=== PATIENT | male | born 1985 | race Caucasian/White ===

== ENCOUNTER 2019-12-29 10:17 | Emergency (ER) | payer OTHER ==
[2019-12-29 10:51] VITALS: BP 126/70; PULSE 72; TEMP 98; BMI 26.6
[2019-12-29] MEDS ORDERED: ALBUTEROL SO4 8 GM HFA INHALER IH ONE (11:14)
--- NOTE | 2019-12-29 11:21 | PDOC ---
History of Present Illness - General Chief Complaint: Cold Symptoms Stated Complaint: FEVER/COUGH History Source: Patient Exam Limitations: No Limitations - History of Present Illness Initial Comments: 12/29/19 11:16 34 yo male h/o asthma here with cough congestion subjective fever and chills, nausea, x 4 days. no known sick contacts. did have one episoe of vomiting 4 days ago, none since. no recent travel. no known covid 19 exposures or close contacts. does use inhaler at home from time to time. no rash. no abd pain. no cp no other complaints. cough nonproductive. pt was seen in [facility] ed a few d ays ago and given benadryl. has been taking nyquil and dayquil since, mild improvement. did not take any medicine prior to coming. 12/29/19 11:28 Past History - Past Medical History Allergies/Adverse Reactions: Allergies Allergy/AdvReac Type Severity Reaction Status Date / Time No Known Allergies Allergy Verified 12/29/19 10:47 Home Medications: Ambulatory Orders NK [No Known Home Medication] 12/29/19 Asthma: Yes COPD: No - Psycho Social/Smoking Cessation Hx Smoking History: Current every day smoker Have you smoked in the past 12 months: Yes Number of Cigarettes Smoked Daily: 3 Information on smoking cessation initiated: No Hx Alcohol Use: No Drug/Substance Use Hx: No Review of Systems - Review of Systems Constitutional: No: Chills, Diaphoresis, Fever HEENTM: Yes: Other (nasal congestions) Respiratory: Yes: Cough, Shortness of Breath Cardiac (ROS): No: Chest Pain, Edema, Irregular Heart Rate : No: Burning, Dysuria Musculoskeletal: No: Back Pain Integumentary: No: Bruising Neurological: No: Headache, Numbness Psychiatric: No: Frequent Crying, Stressors All Other Systems: Reviewed and Negative *Physical Exam - Vital Signs Last Vital Signs Temp Pulse Resp BP Pulse Ox 98.0 F 72 20 126/70 100 12/29/19 10:48 12/29/19 10:48 12/29/19 10:48 12/29/19 10:48 12/29/19 10:48 - Physical Exam 12/29/19 11:19 awake alert lungs clear bilat heart rrr no mrg abd soft nt nd ext wwp no edema. no calf tenderness. skin warm and dry. ED Treatment Course - RADIOLOGY Radiology Studies Ordered: Category Date Time Status CHEST PA & LAT [RAD] Stat Radiology 12/29/19 11:11 Ordered Medical Decision Making - Medical Decision Making 12/29/19 11:20 34 yo h/o asthma here with viral uri sxs. no increased work of breathing normal lung exam. no known sick contacts. plan given mdi, and cxr. [facility] home. Discharge - Discharge Information Problems reviewed: Yes Clinical Impression/Diagnosis: Viral URI Condition: Improved Disposition: HOME - Admission No - Follow up/Referral Referrals: Kan Pedraza MD [Primary Care Provider] - - Patient Discharge Instructions Patient Printed Discharge Instructions: DI for Viral Upper Respiratory Infection -- Adult Additional Instructions: you should follow up with your regular doctor . use inhaler 2 puffs albuterol every 4 hour as needed for cough wheezing. take tylenol 500 mg every 6 hours as neeed for fever or headache. return for vomiting., shortness of breath or any concerns. - Post Discharge Activity
== END 2019-12-29 11:46 | disposition home or self-care (01) ==
LOC: JER 10:17
DX: J06.9 Acute upper respiratory infection, unspecified (principal); B97.89 Other viral agents as the cause of diseases classified elsewhere
CPT/HCPCS: 71046-TC-FY; 99283-25

== ENCOUNTER 2020-06-12 07:59 | Emergency (ER) | payer OTHER ==
[2020-06-12 08:10] VITALS: BP 140/79; PULSE 81; TEMP 98.4; BMI 38.4
[2020-06-12] MEDS ORDERED: FLUORESCEIN NA 1 EA STRIP OS ONE (08:13)
[2020-06-12] MEDS ORDERED: TETRACAINE 0.5% HCL 0.6ML DROPPER.BOTTLE OS ONE (08:13)
[2020-06-12] MEDS ORDERED: FLUORESCEIN NA 1 EA STRIP ONE (08:14)
[2020-06-12] MEDS ORDERED: TETRACAINE 0.5% OPHTH SOLN 2 ML BOTTLE ONE (08:15)
--- NOTE | 2020-06-12 08:29 | PDOC ---
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 Patient report going to urgent care after incident happened 3 days ago and was told by urgent care provider foreign body was seen but it seems like it could not be seen anymore. Patient reports still having irritation in the left eye with foreign body sensation. Denies blurry vision, change in vision, difficulty moving eye. Denies contact lens use. Denies any other symptoms Is this a multiple visit Asthma Patient?: No Timing/Duration: other (3 days) Past History - Medical History Allergies/Adverse Reactions: Allergies Allergy/AdvReac Type Severity Reaction Status Date / Time No Known Allergies Allergy Verified 06/12/20 08:07 Home Medications: Ambulatory Orders Ofloxacin 0.3% Ophth Soln [Ocuflox -] 2 drop OS Q6H 5 Days #1 bottle 06/12/20 Asthma: Yes Cardiac Disorders: Yes COPD: No - Immunization History Immunization Up to Date: Yes - Psycho-Social/Smoking History Smoking History: Current every day smoker Have you smoked in the past 12 months: Yes Number of Cigarettes Smoked Daily: 3 Information on smoking cessation initiated: No - Substance Abuse Hx (Audit-C & DAST Scrn) How often the patient has a drink containing alcohol: Monthly or less Number of drinks the patient has on a typical day: 1 or 2 How often the patient has six or more drinks on one occasion: Never Score: In Men: 4 or > Positive; In Women: 3 or > Positive: 1 Screen Result (Pos requires Nsg. Audit-10AR): Negative In the last yr the pt used illegal drug/Rx for NonMed reason: No Score: Yes response is considered Positive: 0 Screen Result (Positive result requires Nsg. DAST-10): Negative Review of Systems - Review of Systems Able to Perform ROS?: Yes Is the patient limited Finnish proficient: No Constitutional: No: Chills, Fever, Malaise HEENTM: Yes: Symptoms Reported, See HPI, Eye Pain (left eye). No: Blurred Vision, Tearing, Recent change in vision, Double Vision, Cataracts, Ear Pain, Ocular Prothesis, Ear Discharge, Nose Pain, Nose Congestion, Tinnitus, Nose Bleeding, Hearing Loss, Throat Pain, Throat Swelling, Mouth Pain, Dental Problems, Difficulty Swallowing, Mouth Swelling, Other Respiratory: No: Symptoms reported, See HPI, Cough, Orthopnea, Shortness of Breath, SOB with Exertion, SOB at Rest, Stridor, Wheezing, Productive cough, Hemoptysis, Other Cardiac (ROS): No: Symptoms Reported, See HPI, Chest Pain, Edema, Irregular Heart Rate, Lightheadedness, Palpitations, Syncope, Chest Tightness, Other ABD/GI: No: Symptoms Reported, Nausea, Vomiting All Other Systems: Reviewed and Negative *Physical Exam - Vital Signs Last Vital Signs Temp Pulse Resp BP Pulse Ox 98.4 F 81 20 140/79 100 06/12/20 08:07 06/12/20 08:07 06/12/20 08:07 06/12/20 08:07 06/12/20 08:07 - Physical Exam 06/12/20 08:34 GENERAL: Well developed, well nourished. Awake and alert. No acute distress. HEENT: Normocephalic, atraumatic. PERRLA, EOMI. No conjunctival pallor. Sclera are non-icteric. No foreign body visible on exam with fluorescein stain and Burkett lamp. 20/20 OU on visual acuity. Moist mucous membranes. Oropharynx is clear. NECK: Supple. Full ROM. PULMONARY: No evidence of respiratory distress. MUSCULOSKELETAL Normal range of motion at all joints. SKIN: Warm and dry. Normal capillary refill. No rashes. No jaundice. NEUROLOGICAL: Alert, awake, appropriate. Gait is normal without ataxia. PSYCHIATRIC: Cooperative. Good eye contact. Appropriate mood General Appearance: Yes: Nourished, Appropriately Dressed. No: Apparent Distress ED Treatment Course - Medications Given in the ED: ED Medications Discontinued Medications Generic Name Dose Route Start Last Admin Trade Name Freq PRN Reason Stop Dose Admin Fluorescein Sodium 1 ea 06/12/20 08:13 06/12/20 08:17 Fluorets - OS 06/12/20 08:14 1 ea ONCE ONE Administration Tetracaine HCl 1 drop 06/12/20 08:13 06/12/20 08:17 Tetravisc 0.5% Eye Drops - OS 06/12/20 08:14 1 drop ONCE ONE Administration Medical Decision Making - Medical Decision Making 06/12/20 08:32 Patient with no significant past medical history present for evaluation of left eye irritation status post piece of stone going in his left eye 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 Patient report going to urgent care after incident happened 3 days ago and was told by urgent care provider foreign body was seen but it seems like it could not be seen anymore. Patient reports still having irritation in the left eye with foreign body sensation. Denies blurry vision, change in vision, difficulty moving eye. Denies contact lens use. Denies any other symptoms No foreign body visible on exam with fluorescein stain and Burkett lamp. Extraocular muscle intact. Pupil equal reflective to light bilateral. Patient in no acute distress. Left eye irrigated at the eye wash station. Patient report improvement in symptoms after eye wash. Patient stable for discharge ofloxacin drops for infection prophylaxis and eye irritation with ophthalmology follow-up. Patient left department without complication. Discharge - Discharge Information Problems reviewed: Yes Clinical Impression/Diagnosis: Corneal irritation of left eye Foreign body of left eye Qualifiers: Encounter type: initial encounter Qualified Code(s): T15.92XA - Foreign body on external eye, part unspecified, left eye, initial encounter Condition: Stable Disposition: HOME - Admission No - Additional Discharge Information Prescriptions: Ofloxacin 0.3% Ophth Soln [Ocuflox -] 2 drop OS Q6H 5 Days #1 bottle - Follow up/Referral Referrals: Thompson Fountain MD [Staff Physician] - Alexandre Thomas MD [Staff Physician] - - Patient Discharge Instructions Patient Printed Discharge Instructions: How to Instill Eye Drops, How to Get a Foreign Body Out of Your Eye Additional Instructions: No foreign body is visible at this time in your left eye. Use prescribed eyedrops as prescribed for eye irritation and to prevent eye infection. Follow- up referred ophthalmology if no improvement in 3 days - Post Discharge Activity
== END 2020-06-12 08:42 | disposition home or self-care (01) ==
LOC: JERFT 07:59
DX: S05.02XA Injury of conjunctiva and corneal abrasion without foreign body, left eye, initial encounter (principal); T15.92XA Foreign body on external eye, part unspecified, left eye, initial encounter
CPT/HCPCS: 99283-25

== ENCOUNTER 2020-07-04 09:33 | Emergency (ER) | payer OTHER ==
[2020-07-04 09:51] VITALS: BP 139/85; PULSE 79; BMI 38.0
--- OUTSIDE RECORDS SUMMARY | 2020-07-04 09:55 | XMS ---
:1985 Author Organization [facility] Care Team Providers Name Role Phone Dawson, Anderson Unavailable Unavailable Dawson, Anderson Unavailable Unavailable Dawson, Anderson Unavailable Unavailable Dawson, Anderson Unavailable Unavailable Dawson, Anderson Unavailable Unavailable Dawson, Anderson Unavailable Unavailable Dawson, Anderson Unavailable Unavailable Parth, Bawk Corrie Unavailable [phone] Parth, Corrie Unavailable [phone] Osredkar Unavailable [phone] Nicholas Unavailable [phone] Berberyan Unavailable [phone] Berberyan Unavailable [phone] ED STAFF PHYSICIAN Unavailable Unavailable Ulster Unavailable [phone] Ulster Unavailable [phone] Aszalos, Dinae Unavailable Unavailable Aszalos, Diane Unavailable Unavailable Aszalos, Diane Unavailable Unavailable Aszalos, Diane Unavailable Unavailable Aszalos, Diane Unavailable Unavailable Aszalos, Diane Unavailable Unavailable Aszalos, Diane Unavailable Unavailable Aszalos, Diane Unavailable Unavailable Aszalos, Diane Unavailable Unavailable Ringstad Unavailable Unavailable Ringstad Unavailable Unavailable Ringstad Unavailable Unavailable Ringstad Unavailable Unavailable Ringstad Unavailable Unavailable Ringstad Unavailable Unavailable Ringstad Unavailable Unavailable Ringstad Unavailable Unavailable Ringstad Unavailable Unavailable Ringstad Unavailable Unavailable Caronia Unavailable [phone] Caronia Unavailable [phone] Kenny Sanderson MD Unavailable Unavailable Saint Spence, H MD Unavailable Unavailable Saint Spence, H MD Unavailable Unavailable Saint Spence, H MD Unavailable Unavailable Saint Spence, H MD Unavailable Unavailable Saint Spence H MD Unavailable Unavailable Saint Spence H MD Unavailable Unavailable Re-disclosure Warning The records that you are about to access may contain information from federally- assisted alcohol or drug abuse programs. If such information is present, then the following federally mandated warning applies: This information has been disclosed to you from records protected by federal confidentiality rules (42 CFR part 2). The federal rules prohibit you from making any further disclosure of this information unless further disclosure is expressly permitted by the written consent of the person to whom it pertains or as otherwise permitted by 42 CFR part 2. A general authorization for the release of medical or other information is NOT sufficient for this purpose. The Federal rules restrict any use of the information to criminally investigate or prosecute any alcohol or drug abuse patient.The records that you are about to access may contain highly sensitive health information, the redisclosure of which is protected by Article 27-F of the [facility] Public Health law. If you continue you may haveaccess to information: Regarding HIV / AIDS; Provided by facilities licensed or operated by the [facility] Office of Mental Health; or Provided by the [facility] Office for People With Developmental Disabilities. If such information is present, then the following [facility] mandated warning applies: This information has been disclosed to you from confidential records which are protected by state law. State law prohibits you from making any further disclosure of this information without the specific written consent of the person to whom it pertains, or as otherwise permitted by law. Any unauthorized further disclosure in violation of state law may result in a fine or mcc sentence or both. A general authorization for the release of medical or other information is NOT sufficient authorization for further disclosure. Allergies and Adverse Reactions Type Description Substance Reaction Status Data Source(s ) Propensity to Propensity to Propensity to NEXTG EN ([facility] adverse reactions adverse reactions adverse reactions [facility] Medical (disorder) (disorder) (disorder) Center) Encounters Encounter Providers Location Date Indications Data Source(s ) Attender: [facility] 12/30/2019 NEXTGE N ([facility] 04:17:00 PM [facility] Medic al EDT - Center) 12/30/2019 04:17:00 PM EDT Emergency Attender: STAFF ED H 12/27/2019 [facility] STAFF PHYSICIAN 12:57:00 AM Medical Center EDT - 12/27/2019 02:19:00 AM EDT Patient discharged. Attender: [facility] 05/05/2019 JEISON Puentes ([facility] 07:35:00 PM EDT - [facility] 05/05/2019 Center) 07:35:00 PM EDT Emergency Attender: H 05/03/2019 [facility] Abraham Manjarrez 07:50:00 AM EDT Medic al Center Jordy BOWSERdmitter: Abraham Spence MD 05/03/2019 [facility] 12:00:00 AM EDT - Medical Center 07/07/2007 12:00:00 AM EDT Attender: [facility] 03/27/2019 [facility]AD[facility] AM [facility] - [facility] 03/27/2019 Center) 10:50:00 AM EDT Emergency H 03/25/2019 [facility] 07:27:00 PM EDT Medical C enter Attender: Abdias [facility] 01/06/2019 MARIXA EN ([facility] 12:56:00 PM EDT - [facility] 01/06/2019 Center) 12:56:00 PM EDT Outpatient 01/05/2019 [facility] 11:17:00 AM EDT Medical C enter Outpatient 01/05/2019 [facility] 12:00:00 AM EDT Medical C enter Outpatient H 12/26/2018 [facility] 12:42:00 PM EST Medical C enter OutpatientOFFICE/OU Attender: Giselle [facility] 12/26/2018 GLADIS ([facility] 12:42:00 PM EST [facility] 12/26/2018 Center) 12:42:00 PM EST Outpatient 12/26/2018 [facility] 11:13:00 AM EST Medical C enter Outpatient 12/26/2018 [facility] 12:00:00 AM EST Medical C enter Attender: Nadege [facility] 12/23/2018 JEISON N ([facility] 10:15:00 AM [facility] 12/23/2018 Center) 10:15:00 AM EST Emergency H 12/22/2018 [facility] 02:24:00 PM EST [facility]G EN ([facility] 03:12:00 PM EDT [facility] 03/30/2018 Center) 03:12:00 PM EDT Attender: Abdias [facility] 09/18/2017 NEXTG EN ([facility] 03:29:00 PM [facility] 09/18/2017 Center) 03:29:00 PM EST OutpatientOFFICE/OU Attender: [facility] 07/31/2017 NEXTGEN ([facility]ID, [facility]58[facility]00 [facility] Dana Parth 02:58:00 PM [facility] 02:54:00 PM EDT [facility] 07/15/2017 Center) 02:54:00 PM EDT Attender: [facility] 05/15/2017 NEXT GEN ([facility] 03:00:00 PM EDT [facility] 05/15/2017 Center) 03:00:00 PM [facility] 04/[facility] NEXTG EN ([facility] 02:58:00 PM EDT [facility] 04/03/2017 Center) 02:58:00 PM [facility] 03/14/[facility] NEXTG EN ([facility] 09:25:00 AM EDT [facility] 03/14/2017 Center) 09:25:00 AM EDT Attender: [facility] 05/24/2014 NEXTGEN ([facility] 01:34[facility]00 PM EDT [facility] 05/24/2014 Center) 01:34:00 PM EDT Attender: [facility] 02/25/2013 NEXTGEN ([facility] 10:27:00 AM EDT [facility] 02/25/2013 Center) 10:27:00 AM EDT Attender: [facility] 09/11/2011 NEXTGE N ([facility] 02:46:00 PM EST - [facility] 09/11/2011 Center) 02:46:00 PM EST Immunizations Vaccine Date Status Description Data Source(s) New in 2011. IIV4 09/18/2017 completed Influenza, injectable, NEXTGEN ([facility] 12:00:00 AM EST quadrivalent, Jonathon Med ical preservative free, 3 Center) yrs or older Source: New Immunization Record Tdap 02/25/2013 12:00:00 AM EDT completed Tdap N EXTGEN ([facility]) Source: New Immunization Record IIV3. This vaccine 09/11/2011 12:00:00 completed flu (split) NE XTGEN ([facility] is one of two AM EST preservative free, 3 [facility] which replace CVX yrs or older Center) 15, influenza, split virus. Source: New Immunization Record Medications Medication Brand Start Product Dose Route Administrative Pharmacy St atus Indications Reaction Description Data Name Date Form Instructions Instructions Source(s) buspirone buspir ORAL active take 1 NE XTGEN hydrochlori one 2018 {tbl} tablet by (S aint de 7.5 MG 7.5 mg 12:00: oral route 2 Jonathon Oral Tablet tablet 00 AM times ever y Medical buspirone EST day Center) 7.5 mg tablet 200 ACTUAT Ventol 12/26/ active [id number] 3 NEXTGEN Albuterol in HFA 2018 200 ACTUAT (S aint 0.09 90 12:00: Albuterol Jonathon MG/ACTUAT mcg/ac 00 AM 0.09 Medical Metered tuatio EST MG/ACTUAT Cente r) Dose n Metered Dose Inhaler aeroso Inhaler [Ventolin] l [Ventolin] Ventolin inhale HFA 90 r mcg/actuati on aerosol inhaler Ibuprofen ibupro ORAL active take 1 NE XTGEN 400 MG Oral fen 2019 {tbl} tablet by (S aint Tablet 400 mg 12:00: oral route Maurilio ephs ibuprofen tablet 00 AM every 4 - 6 Medical 400 mg EST hours as Center) tablet needed buspirone buspir ORAL complet take 1 N EXTGEN hydrochlori one 2017 {tbl} ed tablet by (S aint de 7.5 MG 7.5 mg 12:00: oral route 2 Jonathno Oral Tablet tablet 00 AM times ever y Medical buspirone EDT day Center) 7.5 mg tablet buspirone buspir ORAL complet take 1 N EXTGEN hydrochlori one 2016 {tbl} ed tablet by (S aint de 7.5 MG 7.5 mg 12:00: oral route 2 Jonathon Oral Tablet tablet 00 AM times ever y Medical buspirone EST day Center) 7.5 mg tablet buspirone buspir ORAL complet take 1 N EXTGEN hydrochlori one 2016 {tbl} ed tablet by (S aint de 7.5 MG 7.5 mg 12:00: oral route 2 Jonathon Oral Tablet tablet 00 AM times ever y Medical buspirone EST day Center) 7.5 mg tablet 200 ACTUAT Ventol 09/18/ complet 200 ACT UAT NEXTGEN Albuterol in HFA 2016 ed Albuterol (Sa int 0.09 90 12:00: 0.09 Jonathon MG/ACTUAT mcg/ac 00 AM MG/ACTUAT Me dical Metered tuatio EST Metered Dose Ce nter) Dose n Inhaler Inhaler aeroso [Ventolin] [Ventolin] l Ventolin inhale HFA 90 r mcg/actuati on aerosol inhaler Melatonin 5 melato 07/15/ active take 5m g NEXTGEN MG Oral malik 5 2016 tablet at (Saint Tablet mg 12:00: bedtime for Carloz anguiano melatonin 5 tablet 00 AM insomnia M edical mg tablet EDT Center) buspirone buspir ORAL complet take 1 N EXTGEN hydrochlori one 2016 {tbl} ed tablet by (S aint de 7.5 MG 7.5 mg 12:00: oral route 2 Jonathon Oral Tablet tablet 00 AM times ever y Medical buspirone EDT day Center) 7.5 mg tablet Ibuprofen ibupro 1 complet [facility] 600 MG Oral fen ed Jonathon Tablet 600 mg Medical ibuprofen Tablet Center 600 mg , Tablet, Ordere Ordered By: d By: Shannon Nascimento ns: 1 re, tablet oral FNPDir every six ection hours PRN s: 1 pain tablet oral every six hours PRN pain 200 ACTUAT albute 2 complet Proventil Saint Albuterol rol ed HFA Jonathon 0.09 sulfat Medical MG/ACTUAT e Center Metered (Prove Dose ntil Inhaler HFA) [Proventil] 90 mcg albuterol HFA sulfate Aeroso (Proventil l HFA) 90 mcg Inhale HFA Aerosol r, Inhaler, Ordere Ordered By: d By: harini Shields s: 2 puff a, by PADire inhalation ctions every six : 2 hours PRN puff shortness by of breath inhala tion every six hours PRN shortn ess of breath 12 HR cetiri 1 complet [facility] cetirizine zine-p ed Jonathon hydrochlori seudoe Medica l de 5 MG / phedri Center Pseudoephed ne 5 rine mg-120 Hydrochlori mg de 120 MG Tablet Extended Extend Release ed Oral Tablet Releas cetirizine- e 12 pseudoephed hr, rine 5 Ordere mg-120 mg d By: Tablet Omiel Extended Tuttle Release 12 , hr, Ordered MDDire By: Omiel ctions Tuttle, : 1 MDDirection tablet s: 1 tablet oral oral twice twice a day a day Cyclobenzap cyclob 1 complet Corey nt rine enzapr ed Jonathon hydrochlori ine 10 Medica l de 10 MG mg Center Oral Tablet Tablet cyclobenzap , rine 10 mg Ordere Tablet, d By: Ordered By: Yamila Chappell PADirection a, s: 1 tablet PADire oral three ctions times a day : 1 PRN tablet pain-modera oral te three times a day PRN pain-m oderat e Ibuprofen ibupro 2 complet [facility] 200 MG Oral fen ed Jonathon Tablet 200 mg Medical ibuprofen Tablet Center 200 mg , Tablet, Ordere Ordered By: d By: harini Shields s: 2 tablet a, oral every PADire eight hours ctions PRN pain : 2 tablet oral every eight hours PRN pain naproxen complet [facility] prn ed [facility] Sulfamethox sulfam 1 complet Corey nt azole 800 ethoxa ed Jonathon MG / zole-t Medical Trimethopri rimeth Center m 160 MG oprim Oral Tablet 800 sulfamethox mg-160 azole-trime mg thoprim 800 Tablet mg-160 mg , Tablet, Ordere Ordered By: d By: luisito Champion MDDirection SaintJ s: 1 tablet ilia, oral twice MDDire a day ctions : 1 tablet oral twice a day Acetaminoph acetam 2 complet Corey nt en 325 MG inophe ed Jonathon Oral Tablet n 325 Medical acetaminoph mg Center en 325 mg Tablet Tablet, , Ordered By: Lyle frias By: Minh Garcia MDDirection el s: 2 tablet SaintJ oral every ilia, four hours MDDire PRN pain ctions : 2 tablet oral every four hours PRN pain Insurance Providers Payer name Policy type Policy ID Covered Covered republican's Policy P olga / Coverage republican ID relationship to Bryan Inf ormation type bryan PMA Management [id number] SP [id number] Rajiv HIP O [id number] SP [id number] [facility] [id number] O JR CARE W [id number] 01 [id number] JR CARE W [id number] Problems, Conditions, and Diagnoses Code Display Name Description Problem Type Effective Data Dates Source(s) [id number] [facility] F17.210 Nicotine NICOTINE Diagnosis 12/27/2019 [facility] dependence, DEPENDENCE, 12:57:00 AM Medical cigarettes, CIGARETTES, EDT Center uncomplicated UNCOMPLICATED J45.909 Unspecified UNSPECIFIED Diagnosis 12/27/2019 [facility] asthma, ASTHMA, 12:57:00 AM Medical uncomplicated UNCOMPLICATED EDT Center J06.9 Acute upper ACUTE UPPER Diagnosis 12/27/2019 [facility] respiratory RESPIRATORY 12:57:00 AM Medical infection, INFECTION, EDT Center unspecified UNSPECIFIED R05 Cough COUGH Diagnosis 12/27/2019 [facility] 12:57:00 AM Medical EDT Center L02.215 Cutaneous abscess CUTANEOUS ABSCESS Diagnosis 05/03/2019 [facility] of perineum OF PERINEUM 07:50:00 AM Medical EDT Center L02.91 Cutaneous abscess, CUTANEOUS ABSCESS, Diagnosis 9 [facility] unspecified UNSPECIFIED 07:50:00 AM Medical EDT Center M79.672 Pain in left foot PAIN IN LEFT FOOT Diagnosis 03/25/2019 [facility] 07:27:00 PM Medical EDT Center L60.0 Ingrowing nail INGROWING NAIL Diagnosis 03/25/2019 [facility] 07:27:00 PM Medical EDT Center M79.673 Pain in PAIN IN Diagnosis 03/25/2019 [facility] unspecified foot [facility]PECIFIED FO[facility] F41.9 Anxiety disorder, ANXIETY DISORDER, Diagnosis 12/26/2018 [facility] unspecified UNSPECIFIED 12:42:00 PM Medical EST Center M54.9 Dorsalgia, DORSALGIA, Diagnosis 12/26/2018 [facility] unspecified UNSPECIFIED 12:42:00 PM Medical EST Center R40.2410 Hernandez coma scale HERNANDEZ COMA SCALE Diagnosis 9 [facility] score 13-15, SCORE 13-15, 02:24:00 PM Medical unspecified time UNSPECIFIED TIME EST Ce nter Y99.0 Civilian activity CIVILIAN ACTIVITY Diagnosis 12/22/2018 [facility] done for income or DONE FOR INCOME OR 02:24:00 PM Medical pay PAY EST Center Y92.69 Other specified OTH INDUSTRIAL AND Diagnosis 12/22/2018 S june [facility] industrial and CONSTRUCTION AREA 02:24:00 PM In dical construction area PLACE EST Center as the place of occurrence of the external cause Y93.89 Activity, other ACTIVITY, OTHER Diagnosis 12/22/2018 [facility] specified SPECIFIED 02:24:00 PM Medical EST Center X50.0XXA Overexertion from OVEREXERTION FROM Diagnosis 12/22/2018 [facility] strenuous movement STRENUOUS MOVEMENT 02:24:00 PM Medical or load, initial OR LOAD, INIT EST Cente r encounter S29.012A Strain of muscle STRAIN OF MUSCLE Diagnosis 12/22/2018 [facility] and tendon of back AND TENDON OF BACK 02:24:00 PM Medical wall of thorax, WALL OF THORAX, EST Cent er initial encounter INIT S39.012A Strain of muscle, STRAIN OF MUSCLE, Diagnosis 12/22/2018 [facility] fascia and tendon FASCIA AND TENDON 02:24:00 PM Medical of lower back, OF LOWER BACK, EST Center initial encounter INIT Surgeries/Procedures Procedure Description Date Indications Data Source(s) OFFICE/OUTPATIENT 12/26/2018 JENNIFERGEN (S june [facility] VISIT, EST 12:00:00 AM EST - Medical Ce nter) 12/26/2018 12:00:00 AM EST OFFICE/OUTPATIENT 07/31/2017 GLADIS (Jorgito [facility] VISIT, EST 12:00:00 AM EDT - Medical Ce nter) 07/31/2017 12:00:00 AM EDT Results ID Date Data Source [id number] 05/23/2020 02:09:00 PM EDT [facility] Name Value Range Interpretation Code Description Data Lauren rce(s) Supporting Document(s ) SARS-COV-2 [facility] RESP Diagnostics QL ARAVIND+PROBE This lab was ordered by [facility] and reported by [facility]. ID Date Data Source [id number] 05/31/2018 11:25:00 PM EDT [facility] 400 Name Value Range Interpretation Description Data Sup porting Code Source(s) Document(s ) UNK <item><content Saint styleCode="Bold Jonathon ">Culture Medical Report Center </content>
<table><tbody>< tr><td>Specimen Number:</td><td >[id number]</td> </tr><tr><td>Sa mple Collection Date/Time: </td><td> 018 11:25 PM</td></tr><tr ><td>Specimen Source:</td><td >THROAT</td></t r><tr><td>Throa t-Nose Culture:</td><t d>Collection Plate Date: 05/31/2018 23:36 </td></tr><tr>< td>Culture Status:</td><td >Final </td></tr><tr>< td>Culture Report:</td><td >NEGATIVE FOR BETA HEMOLYTIC STREPTOCOCCI </td></tr></tbo dy></table></it em> Streptococcus <item><content Saint pyogenes Ag styleCode="Raghu Holt [Presence] in ">Rapid Strep A Medical Unspecified </content>
Center specimen by <table><tbody>< Immunoassay tr><td>Specimen Number:</td><td >[id number]</td> </tr><tr><td>Sa mple Collection Date/Time: </td><td> 11:25 PM</td></tr><tr ><td>Specimen Source:</td><td >THROAT</td></t r><tr><td>Rapid Strep A:</td><td>NEGA TIVE </td></tr></tbo dy></table></it em> UNK <item><content [facility] styleCode="Raghu Jonathon ">Culture Medical Status Center </content>
<table><tbody>< tr><td>Specimen Number:</td><td >[id number]</td> </tr><tr><td>Sa mple Collection Date/Time: </td><td> 11:25 PM</td></tr><tr ><td>Specimen Source:</td><td >THROAT</td></t r><tr><td>Cultu re Report:</td><td >NEGATIVE FOR BETA HEMOLYTIC STREPTOCOCCI </td></tr><tr>< td>Throat-Nose Culture:</td><t d>Collection Plate Date: 05/31/2018 23:36 </td></tr><tr>< td>Culture Status:</td><td >Final </td></tr></tbo dy></table></it em> Procedure Social History Code Duration Value Status Description Data Source(s ) Smoking 12/27/2019 Daily Smoker completed Daily Smoker [facility] 01:52:00 AM EDT Medical C enter Smoking 12/27/2019 Daily Smoker completed Daily Smoker [facility] 01:35:00 AM EDT Medical C enter Smoking 12/27/2019 Daily Smoker completed Daily Smoker [facility] 01:03:00 AM EDT Medical C enter Smoking 05/03/2019 Daily Smoker completed Daily Smoker [facility] 08:30:00 AM EDT Medical C enter Smoking 05/03/2019 Daily Smoker completed Daily Smoker [facility] 08:10:00 AM EDT Medical C enter Smoking 05/03/2019 Daily Smoker completed Daily Smoker [facility] 07:53:00 AM EDT Medical C enter Smoking 03/25/2019 Daily Smoker completed Daily Smoker [facility] 07:57:00 PM EDT Medical C enter Smoking 03/25/2019 Daily Smoker completed Daily Smoker [facility] 07:45:00 PM EDT Medical C enter Caffeine Use 12/26/2018 completed NEXTGEN (Corey nt Details 12:00:00 AM EST [facility]) Smoking 12/26/2018 Unknown if completed Unknown if ever NEXTGEN ( [facility] 12:00:00 AM EST ever smoked smoked [facility]) Smoking 12/22/2018 Daily Smoker completed Daily Smoker [facility] 01:37:00 PM EST Medical C enter Smoking 12/22/2018 Daily Smoker completed Daily Smoker [facility] 01:35:00 PM EST Medical C enter Smoking 12/22/2018 Daily Smoker completed Daily Smoker [facility] 01:26:00 PM EST Medical C enter Smoking Unknown if completed Unknown if ever [facility] ever smoked smoked Medical Cente r Alcohol Use completed NEXTGEN ([facility]) Vital Signs ID Date Data Source UNK Name Value Range Interpretation Code Description Data Source(s) Body weight 107.456977 107.902817 kg [facility] Measured kg [facility] Body temperature 37.810310 37.758871 [facility] Respiratory rate 20 /min 20 /min [facility] Oxygen saturation 96 % 96 % [facility] ramey in Arterial blood [facility] Center by Pulse oximetry Heart rate 99 /min 99 /min [facility] Body height 175.871497 175.195854 cm [facility] cm Medical Center Diastolic blood 79 mm[Hg] 79 mm[Hg] [facility] pressure Medical Center Systolic blood 155 mm[Hg] 155 mm[Hg] [facility] pressure Medical Center Body mass index 34.9 kg/m2 34.9 kg/m2 [facility] (BMI) [Ratio] Medical Stephanie ter Body weight 107.665682 107.182716 kg [facility] Measured kg [facility] Center Body temperature 36.510250 36.399128 Maricel [facility] Respiratory rate 18 /min 18 /min [facility] Oxygen saturation 98 % 98 % [facility] J osephs in [facility] by Pulse oximetry Heart rate 82 /min 82 /min [facility] Diastolic blood 96 mm[Hg] 96 mm[Hg] [facility] pressure Medical Center Systolic blood 159 mm[Hg] 159 mm[Hg] [facility] pressure Medical Center Body weight 102.765049 102.556489 kg [facility] Measured kg Medical Center Body temperature 36.461307 36.132279 Maricel [facility] Respiratory rate 19 /min 19 /min [facility] Heart rate 93 /min 93 /min [facility] Body height 177.780574 177.381971 cm [facility] Diastolic blood 88 mm[Hg] 88 mm[Hg] [facility] pressure Medical Center Systolic blood 158 mm[Hg] 158 mm[Hg] [facility] Medical Center Body mass index 32.2 kg/m2 32.2 kg/m2 [facility] (BMI) [Ratio] Medical [facility] Oxygen saturation 98 % 98 % NEXTGEN ([facility] by Pulse oximetry Center) Body mass index 33.92 kg/m2 Overweight 33.92 kg/m2 NEXTGEN ([facility] (BMI) [Ratio] [facility]) Respiratory rate 20 /min 20 /min [facility] ([facility]) Body temperature 36.61 Maricel 36.61 Maricel [facility] ([facility]) Heart rate 74 /min 74 /min [facility] Diastolic blood 80 mm[Hg] 80 mm[Hg] NEXTGEN ( [facility] pressure [facility]) Systolic blood 126 mm[Hg] 126 mm[Hg] [facility]S aint pressure [facility]) Body weight 107.229 kg 107.229 kg [facility] ([facility]) Body height 177.80 cm 177.80 cm [facility] ([facility]) Body temperature 36.471019 36.136674 [facility] Respiratory rate 18 /min 18 /min [facility] Oxygen saturation 98 % 98 % [facility] J osephs in [facility] by Pulse oximetry Heart rate 86 /min 86 /min [facility] Diastolic blood 76 mm[Hg] 76 mm[Hg] [facility] Systolic blood 122 mm[Hg] 122 mm[Hg] [facility] Body weight 84.298454 kg 84.585309 kg [facility] Body temperature 36.849303 36.829365 [facility] Respiratory rate 17 /min 17 /min [facility] Oxygen saturation 99 % 99 % [facility] Arterial blood [facility] by Pulse oximetry Heart rate 85 /min 85 /min [facility] Body height 182.315564 182.771712 cm [facility] Diastolic blood 82 mm[Hg] 82 mm[Hg] [facility] Systolic blood 142 mm[Hg] 142 mm[Hg] [facility] Body mass index 25.1 kg/m2 25.1 kg/m2 [facility] (BMI) [Ratio] Medical [facility] Body weight 102.603130 102.298056 kg [facility] kg Medical Center Body temperature 36.947244 36.023576 [facility] Respiratory rate 20 /min 20 /min [facility] Oxygen saturation 98 % 98 % [facility] by Pulse oximetry Heart rate 82 /min 82 /min [facility] Body height 177.262750 177.941417 cm [facility] Diastolic blood 77 mm[Hg] 77 mm[Hg] [facility] Systolic blood 146 mm[Hg] 146 mm[Hg] [facility] Body mass index 32.1 kg/m2 32.1 kg/m2 [facility] (BMI) [Ratio] Medical [facility] Oxygen saturation 98 % 98 % [facility] in Arterial blood [facility] by Pulse oximetry Center) Body mass index 32.14 kg/m2 Overweight 32.14 kg/m2 [facility] ([facility] (BMI) [Ratio] [facility]) Respiratory rate 18 /min 18 /min [facility] ([facility]) Body temperature 37.22 Maricel 37.22 Maricel [facility] ([facility]) Heart rate 74 /min 74 /min [facility] ([facility]) Diastolic blood 78 mm[Hg] 78 mm[Hg] [facility] ( [facility]) Systolic blood 125 mm[Hg] 125 mm[Hg] [facility] ([facility]) Body weight 101.605 kg 101.605 kg [facility] ([facility] t [facility]) Body height 177.80 cm 177.80 cm [facility] ([facility]) Patient Treatment Plan of Care Planned Activity Planned Date Details Description Data Source (s) 200 ACTUAT Albuterol 0.09 12/26/2018 NE XTGEN (Saint MG/ACTUAT Metered Dose 12:00:00 AM [facility] Inhaler [[facility] [place]) Ibuprofen 400 MG Oral 12/26/2018 NEXTGE N (Saint Tablet 12:00:00 AM [facility]) buspirone hydrochloride 7.5 12/26/2018 [facility]EXT[facility] ([facility] MG Oral Tablet 12:00:00 AM [facility]) buspirone hydrochloride 7.5 03/30/2018 NEXTGEN ([facility] MG Oral Tablet 12:00:00 AM [facility]) 200 ACTUAT Albuterol 0.09 09/18/2017 NE XTGEN ([facility] MG/ACTUAT Metered Dose 12:00:00 AM [facility] Inhaler [[facility]] [place]) buspirone hydrochloride 7.5 09/18/2017 NEXTGEN ([facility] MG Oral Tablet 12:00:00 AM [facility]) buspirone hydrochloride 7.5 09/18/2017 [facility]EXT[facility] ([facility] Oral Tablet 12:00:00 AM [facility]) Melatonin 5 MG Oral Tablet 07/15/2017 N EXTGEN (Saint 12:00:00 AM [facility]) buspirone hydrochloride 7.5 07/15/2017 NEXTGEN ([facility] MG Oral Tablet 12:00:00 AM [facility]) 12 HR cetirizine [facility] hydrochloride 5 MG / Medical Center Pseudoephedrine Hydrochloride 120 MG Extended Release Oral Tablet Acetaminophen [address] [facility] Sulfamethoxazole 800 MG / [facility] Trimethoprim 160 MG Oral [facility] Tablet Ibuprofen [address] [facility] naproxen prn [facility] 200 ACTUAT Albuterol 0.09 Sa [facility] MG/ACTUAT Metered Dose Medic [facility] Inhaler [Proventil] Cyclobenzaprine [place] [facility] hydrochloride 10 MG Oral Med [facility] Tablet Ibuprofen [address] [facility]
[2020-07-04] MEDS ORDERED: LIDOCAINE 5% TOPICAL PATCH TP ONE (10:01)
[2020-07-04] MEDS ORDERED: KETOROLAC TROMETHAMINE 60 MG/2 ML VIAL IM ONE (10:01)
[2020-07-04] MEDS ORDERED: ACETAMINOPHEN 325 MG TABLET (FP) PO ONE (10:01)
--- NOTE | 2020-07-04 10:01 | PDOC ---
History of Present Illness - General Chief Complaint: Pain, Acute Stated Complaint: LT LEG PAIN Time Seen by Provider: 07/04/20 09:46 History Source: Patient Exam Limitations: No Limitations Past History - Travel History Traveled outside of the country in the last 30 days: No Close contact w/someone who was outside of country & ill: No - Medical History Allergies/Adverse Reactions: Allergies Allergy/AdvReac Type Severity Reaction Status Date / Time No Known Allergies Allergy Verified 07/13/20 11:48 Home Medications: Ambulatory Orders Ofloxacin 0.3% Ophth Soln [Ocuflox -] 2 drop OS Q6H 5 Days #1 bottle 06/12/20 Methocarbamol [Robaxin -] 500 mg PO BID #14 tablet 07/04/20 Methylprednisolone [Medrol Dose Nino] 4 mg PO ASDIR #21 tablet 07/04/20 Asthma: Yes Cardiac Disorders: Yes COPD: No - Immunization History Immunization Up to Date: Yes - Psycho-Social/Smoking History Smoking History: Unknown if ever smoked Have you smoked in the past 12 months: Yes Number of Cigarettes Smoked Daily: 3 - Substance Abuse Hx (Audit-C & DAST Scrn) How often the patient has a drink containing alcohol: Monthly or less Score: In Men: 4 or > Positive; In Women: 3 or > Positive: 1 Screen Result (Pos requires Nsg. Audit-10AR): Negative In the last yr the pt used illegal drug/Rx for NonMed reason: No Score: Yes response is considered Positive: 0 Screen Result (Positive result requires Nsg. DAST-10): Negative Review of Systems - Review of Systems Able to Perform ROS?: Yes Comments:: 07/04/20 09:51 CONSTITUTIONAL: Absent: fever, chills, diaphoresis, generalized weakness, malaise, loss of a ppetite GASTROINTESTINAL: Absent: abdominal pain, abdominal distension, nausea, vomiting, diarrhea, constipation, melena, hematochezia GENITOURINARY: Absent: dysuria, frequency, urgency, hesitancy, hematuria, flank pain, genital pain MUSCULOSKELETAL: Present: low back pain, L leg pain Absent: arthralgia, joint swelling SKIN: Absent: rash, itching, pallor NEUROLOGIC: Absent: headache, focal weakness or paresthesias, dizziness, unsteady gait, seizure, mental status changes, bladder or bowel incontinence PSYCHIATRIC: Absent: anxiety, depression, suicidal or homicidal ideation, hallucinations. Is the patient limited Luxem[place]ish proficient: No *Physical Exam - Vital Signs Last Vital Signs Temp Pulse Resp BP Pulse Ox 79 18 139/85 100 07/04/20 09:43 07/04/20 09:43 07/04/20 09:43 07/04/20 09:43 - Physical Exam 07/04/20 09:52 GENERAL: Well developed, well nourished. Awake and alert. No acute distress. NECK: Supple. Full ROM. No lymphadenopathy. MUSCULOSKELETAL TTP of the L paraspinous muscles, L3-L5, with palpable knot consistent with muscle spasm. (+) straight leg raise testing. Normal range of motion at all joints. No bony deformities or tenderness. No CVA tenderness. EXTREMITIES: No cyanosis. No clubbing. No edema. No calf tenderness. SKIN: Warm and dry. Normal capillary refill. No rashes. No jaundice. NEUROLOGICAL: Alert, awake, appropriate. Cranial nerves 2-12 intact. No deficits to light touch and temperature in face, upper extremities and lower extremities. No motor deficits in the in face, upper extremities and lower extremities. Normoreflexic in the upper and lower extremities. Normal speech. Toes are down-going bilaterally. Gait is normal without ataxia. PSYCHIATRIC: Cooperative. Good eye contact. Appropriate mood and affect. Medical Decision Making - Medical Decision Making 07/04/20 15:51 Patient is a 35-year-old male past medical history of low back pain, presents to the ER today for worsening back pain. He states that he tried [id number] medications without relief of symptoms. He notes the pain is going down his left leg. Denies saddle anesthesia, bladder bowel incontinence, numbness and tingling weakness effected extremity. A/P: Low back pain -Pt with TTP of the L paraspinous muscles, L3-L5, with palpable knot consistent with muscle spasm. (+) straight leg raise testing -No trauma, or fever. No saddle anesthesia or bladder/bowel incontinence. No CVA tenderness. -Pt is neurologically intact on exam with no focal findings. -Toradol given with relief of symptoms -DC home. Ortho follow up given for if symptoms do not resolve. -I discussed the physical exam findings, ancillary test results and final diagnoses with the patient. I answered all of the patient's questions. The patient was satisfied with the care received and felt comfortable with the discharge plan and treatment plan. The Patient agrees to follow up with the primary care physician/specialist within 24-72 hours. Return precautions were tanner thayer. Discharge - Discharge Information Problems reviewed: Yes Clinical Impression/Diagnosis: Back pain Qualifiers: Back pain location: low back pain Chronicity: acute Back pain laterality: left Sciatica presence: with sciatica Sciatica laterality: sciatica of left side Qualified Code(s): M54.42 - Lumbago with sciatica, left side Condition: Stable Disposition: HOME - Admission No - Additional Discharge Information Prescriptions: Methylprednisolone [Medrol Dose Nino] 4 mg PO ASDIR #21 tablet Methocarbamol [Robaxin -] 500 mg PO BID #14 tablet - Follow up/Referral Referrals: Marquis Spivey DO [Staff Physician] - - Patient Discharge Instructions Patient Printed Discharge Instructions: DI for Back Pain With Sciatica Additional Instructions: You have low back pain and leg pain due to a muscle spasm. The back pain is causing your leg pain which is sciatica. Please take the medrol dose pack as directed starting today. You were also prescribed Robaxin. Take this medication twice a day. Do not drive after taking this medication as it may make you sleepy. You may use warm compresses on your back to help with her symptoms. Pl ease follow-up with your primary care doctor. If your symptoms do not resolve in 3-5 days, follow-up with orthopedics. A referral has been provided for you. Return to the emergency department if you have worsening back pain, bladder or bowel incontinence, numbness and tingling in her legs, changes in the way you walk, or any new or worsening symptoms. - Post Discharge Activity Work/Back to School Note: Back to Work
[2020-07-04] MEDS ORDERED: LIDOCAINE 5% TOPICAL PATCH ONE (10:15)
[2020-07-04] MEDS ORDERED: ACETAMINOPHEN 325 MG TABLET (FP) ONE (10:15)
[2020-07-04] MEDS ORDERED: KETOROLAC TROMETHAMINE 30 MG/1 ML VIAL ONE (10:16)
== END 2020-07-04 10:29 | disposition home or self-care (01) ==
LOC: JERFT 09:33
PROC: 3E0233Z Introduction of Anti-inflammatory into Muscle, Percutaneous Approach (ICD-10-PCS; principal; 2020-07-04)
DX: M54.42 Lumbago with sciatica, left side (principal)
CPT/HCPCS: 99284-25

== ENCOUNTER 2020-07-13 11:47 | Emergency (ER) | payer OTHER ==
[2020-07-13 11:52] VITALS: BP 147/99; PULSE 87; TEMP 97.9; BMI 38.4
--- NOTE | 2020-07-13 12:04 | PDOC ---
History of Present Illness - General Chief Complaint: Back Pain Stated Complaint: LWR BACK PAIN Time Seen by Provider: 07/13/20 11:58 History Source: Patient Exam Limitations: No Limitations Past History - Travel History Traveled outside of the country in the last 30 days: No Close contact w/someone who was outside of country & ill: No - Medical History Allergies/Adverse Reactions: Allergies Allergy/AdvReac Type Severity Reaction Status Date / Time No Known Allergies Allergy Verified 07/13/20 11:48 Home Medications: Ambulatory Orders Ofloxacin 0.3% Ophth Soln [Ocuflox -] 2 drop OS Q6H 5 Days #1 bottle 06/12/20 Methocarbamol [Robaxin -] 500 mg PO BID #14 tablet 07/04/20 Methylprednisolone [Medrol Dose Nino] 4 mg PO ASDIR #21 tablet 07/04/20 Ketorolac Tromethamine [Toradol] 10 mg PO TID #21 tablet 07/13/20 Methocarbamol [Robaxin -] 500 mg PO BID #14 tablet 07/13/20 Asthma: Yes Cardiac Disorders: Yes COPD: No Diabetes: No Dialysis: No - Immunization History Immunization Up to Date: Yes - Psycho-Social/Smoking History Smoking History: Current every day smoker Have you smoked in the past 12 months: Yes Number of Cigarettes Smoked Daily: 6 Information on smoking cessation initiated: Yes - Substance Abuse Hx (Audit-C & DAST Scrn) How often the patient has a drink containing alcohol: Never Score: In Men: 4 or > Positive; In Women: 3 or > Positive: 0 Screen Result (Pos requires Nsg. Audit-10AR): Negative In the last yr the pt used illegal drug/Rx for NonMed reason: No Score: Yes response is considered Positive: 0 Screen Result (Positive result requires Nsg. DAST-10): Negative Review of Systems - Review of Systems Able to Perform ROS?: Yes Comments:: 07/13/20 12:30 CONSTITUTIONAL: Absent: fever, chills, diaphoresis, generalized weakness, malaise, loss of appetite GASTROINTESTINAL: Absent: abdominal pain, abdominal distension, nausea, vomiting, diarrhea, constipation, melena, hematochezia GENITOURINARY: Absent: dysuria, frequency, urgency, hesitancy, hematuria, flank pain, genital pain MUSCULOSKELETAL: Present: low back pain Absent: arthralgia, joint swelling SKIN: Absent: rash, itching, pallor NEUROLOGIC: Absent: headache, focal weakness or paresthesias, dizziness, unsteady gait, seizure, mental status changes, bladder or bowel incontinence PSYCHIATRIC: Absent: anxiety, depression, suicidal or homicidal ideation, hallucinations. Is the patient limited Pakistani proficient: No *Physical Exam - Vital Signs Last Vital Signs Temp Pulse Resp BP Pulse Ox 97.9 F 87 18 147/99 98 07/13/20 11:49 07/13/20 11:49 07/13/20 11:49 07/13/20 11:49 07/13/20 11:49 - Physical Exam 07/13/20 12:30 GENERAL: Well developed, well nourished. Awake and alert. No acute distress. NECK: Supple. Full ROM. No lymphadenopathy. MUSCULOSKELETAL TP of the L paraspinous muscles, L3-L5, with palpable knot consistent with muscle spasm. Positive straight leg raise test consistent with sciatica. Normal range of motion at all joints. No bony deformities or tenderness. No CVA tenderness. EXTREMITIES: No cyanosis. No clubbing. No edema. No calf tenderness. SKIN: Warm and dry. Normal capillary refill. No rashes. No jaundice. NEUROLOGICAL: Alert, awake, appropriate. Cranial nerves 2-12 intact. No deficits to light touch and temperature in face, upper extremities and lower extremities. No motor deficits in the in face, upper extremities and lower extremities. Normoreflexic in the upper and lower extremities. Normal speech. Toes are down-going bilaterally. Gait is normal without ataxia. PSYCHIATRIC: Cooperative. Good eye contact. Appropriate mood and affect. Medical Decision Making - Medical Decision Making 07/13/20 12:31 Patient is a 35-year-old male with past medical history of upper back pain, lower back pain, presents to the ER with increasing lower back pain. He was seen by myself 1 week ago. He states that he was taking the muscle relaxers and steroid pack as directed. He states that the pain was not getting better as quickly as expected, so he went to an urgent care who told him to stop the steroid pack and start taking ibuprofen. He states that after taking the ibupro fen the pain increased. He returns today with increasing pain down the left leg and back spasm. He states that the Toradol shot received last time in the ER was helpful. Denies fevers, chills, urinary issues, saddle anesthesia and bladder bowel incontinence. A/P: Low back pain with L leg pain -Pt with TTP of the L paraspinous muscles, L3-L5, with palpable knot consistent with muscle spasm. Positive straight leg raise test consistent with sciatica. -No trauma, or fever. No saddle anesthesia or bladder/bowel incontinence. No CVA tenderness. -Pt is neurologically intact on exam with no focal findings. -Given this is a repeat visit, x-ray obtained of the lumbar spine. -X-ray as read by radiology shows mild straightening of the L-spine without obvious pathology; likely spasm -Toradol given with relief of symptoms -Will adjust patient's medication to include p.o. Toradol and muscle relaxer refill. -Patient states he was unable to follow-up with a orthopedist due to needing a referral by his primary care doctor. Will refer patient to a new primary care doctor as he states he has been unable to get in touch with his current primary care doctor. -DC home. Ortho follow up given for if symptoms do not resolve. -I discussed the physical exam findings, ancillary test results and final diagnoses with the patient. I answered all of the patient's questions. The patient was satisfied with the care received and felt comfortable with the discharge plan and treatment plan. The Patient agrees to follow up with the primary care physician/specialist within 24-72 hours. Return precautions were given. Discharge - Discharge Information Problems reviewed: Yes Clinical Impression/Diagnosis: Back pain Qualifiers: Back pain location: low back pain Chronicity: acute Back pain laterality: left Sciatica presence: with sciatica Sciatica laterality: sciatica of left side Qualified Code(s): M54.42 - Lumbago with sciatica, left side Condition: Stable Disposition: HOME - Admission No - Follow up/Referral Referrals: Kan Pedraza MD [Primary Care Provider] - - Patient Discharge Instructions Patient Printed Discharge Instructions: DI for Low Back Pain Additional Instructions: You were seen for your back pain today. Your x-ray shows that you are most likely in spasm. The spasm is causing your leg pain or sciatica. Your medications have been adjusted today. Please take the Toradol as directed. Continue taking the muscle relaxer as directed. Not drink or drive if taking his medications may make you drowsy. Follow-up with your primary care doctor this week. Referrals been provided to you. Return to the ER for worsening pain, loss of bladder bowel function, numbness and tingling in the groin if you have any changes in her symptoms. - Post Discharge Activity Work/Back to School Note: Back to Work
--- OUTSIDE RECORDS SUMMARY | 2020-07-13 12:06 | XMS ---
:1985 Author Organization [facility] Care Team Providers Name Role Phone Dawson, Anderson Unavailable Unavailable Dawson, Anderson Unavailable Unavailable Dawson, Anderson Unavailable Unavailable Dawson, Anderson Unavailable Unavailable Dawson, Anderson Unavailable Unavailable Dawson, Anderson Unavailable Unavailable Dawson, Anderson Unavailable Unavailable Dawson, Anderson Unavailable Unavailable Parth, Bawk Corrie Unavailable [phone] Parth, Corrie Unavailable [phone] Osredkar Unavailable [phone] Nicholas Unavailable [phone] Berberyan Unavailable [phone] Berberyan Unavailable [phone] ED STAFF PHYSICIAN Unavailable Unavailable [place] Unavailable [phone] Mari Unavailable [phone] Aszalos, Diane Unavailable Unavailable Aszalos, Diane Unavailable [...] Unavailable Unavailable [place] Unavailable Unavailable Caronia Unavailable [phone] Caronia Unavailable [phone] Kenny Sanderson MD Unavailable Unavailable Kenny Sanderson MD Unavailable Unavailable Saint Spence H MD Unavailable Unavailable Saint Spence H MD Unavailable Unavailable Saint Spence H MD Unavailable Unavailable Saint Spence H MD Unavailable Unavailable Kenny Sanderson MD Unavailable Unavailable Re-disclosure Warning The records [...] is protected by Article 27-F of the [facility] Public Health law. If you continue you may haveaccess to information: Regarding HIV / AIDS; Provided by facilities licensed or operated by the [facility] Office of Mental Health; or Provided by the [facility] Office for People With Developmental Disabilities. If such information is present, then the following [facility] mandated warning applies: This information has [...] law may result in a fine or usp sentence or both. A general authorization for the release of medical or other information is NOT sufficient authorization for further disclosure. Allergies and Adverse Reactions Type Description Substance Reaction Status Data Source(s ) Propensity to Propensity to Propensity to NEXTG EN (Saint adverse reactions adverse reactions adverse reactions [facility] Medical (disorder) (disorder) (disorder) Center) Encounters Encounter Providers Location Date Indications Data Source(s ) Attender: [facility] 12/30/2019 NEXTZOILA N ([facility] 04:17:00 PM [facility] Medic nd EDT - Center) 12/30/2019 04:17:00 PM EDT Emergency Attender: STAFF ED H 12/27/2019 [facility] STAFF PHYSICIAN 12:57:00 AM Medical Center EDT - 12/27/2019 02:19:00 AM EDT Patient discharged. Attender: [facility] 05/05/2019 JEISON Puentes ([facility] 07:35:00 PM EDT - [facility] 05/05/2019 Center) 07:35:00 PM EDT Emergency Attender: H 05/03/2019 [facility] Abraham Manjarrez 07:50:00 AM EDT Medic al [place] Jordy BOWSERdmitter: Abraham Spence MD 05/03/2019 [facility] 12:00:00 AM EDT - Medical Center 07/07/2007 12:00:00 AM EDT Attender: [facility] 03/27/2019 GLADIS [facility] AM [facility] - [facility] 03/27/2019 Center) 10:50:00 AM EDT Emergency H 03/25/2019 [facility] 07:27:00 PM EDT Medical C enter Attender: Abdias [facility] 01/06/2019 MARIXA KINGSTON ([facility] 12:56:00 PM EDT - [facility] 01/06/2019 Center) 12:56:00 PM EDT Outpatient 01/05/2019 [facility] 11:17:00 AM EDT Medical C enter Outpatient 01/05/2019 [facility] 12:00:00 AM EDT Medical C enter Outpatient H 12/26/2018 [facility] 12:42:00 PM EST Medical C enter OutpatientOFFICE/OU Attender: Giselle [facility] 12/26/2018 GLADIS ([facility] 12:42:00 PM EST [facility] 12/26/2018 Center) 12:42:00 PM EST Outpatient 12/26/2018 [facility] 11:13:00 AM EST Medical C enter Outpatient 12/26/2018 [facility] 12:00:00 AM EST Medical C enter Attender: [facility] 12/23/2018 NEXTGE N ([facility] 10[facility] AM EST [facility] 12/23/2018 Center) 10:15:00 AM EST Emergency H 12/22/2018 [facility] 02:24:00 PM EST [facility]30[facility] NEXTG EN ([facility] 03:12:00 PM EDT [facility] 03/30/2018 Center) 03:12:00 PM EDT [facility] 09/18/2017 NEXTG EN ([facility] 03:29:00 PM [facility] 09/18/2017 Center) 03:29:00 PM EST OutpatientOFFICE/OU Attender: [facility] 07/31/2017 NEXTGEN ([facility] 02[facility]58[facility]00 [facility] Bawk Parth 02:58:00 PM EDT Attender: Anderson [facility] 07/15/2017 NEXTGEN ([facility] 02:54:00 PM EDT [facility] 07/15/2017 Center) 02:54:00 PM EDT Attender: [facility] 05/15/2017 NEXT GEN ([facility] 03:00:00 PM EDT [facility] 05/15/2017 Center) 03:00:00 PM EDT Attender: [facility] 04/03/2017 NEXTG EN ([facility] 02:58:00 PM EDT [facility] 04/03/2017 Center) 02:58:00 PM EDT Attender: [facility] 03/14/2017 NEXTG EN ([facility] 09:25:00 AM EDT [facility] 03/14/2017 Center) 09:25:00 AM EDT Attender: Clemente [facility] 05/24/2014 NEXTGEN ([facility] 01:34:00 PM EDT [facility] 05/24/2014 Center) 01:34:00 PM EDT Attender: [facility] 02/25/2013 NEXTGEN (Sa hany Dominique [place] 10:27:00 AM EDT [facility] 02/25/2013 Center) 10:27:00 AM EDT Attender: [facility] 09/11/2011 NEXTGE N ([facility] 02:46:00 PM EST - [facility] 09/11/2011 Center) 02:46:00 PM EST Immunizations Vaccine Date Status Description Data Source(s) New in 2011. IIV4 09/18/2017 completed Influenza, injectable, NEXTGEN ([facility] 12:00:00 AM EST quadrivalent, Jonathon Med ical preservative free, 3 Center) yrs or older Source: New Immunization Record Tdap 02/25/2013 12:00:00 AM EDT completed Tdap N EXTGEN ([facility]) Source: New Immunization Record IIV3. This vaccine 09/11/2011 12:00:00 completed flu (split) NE XTGEN ([facility] is one of two AM EST preservative free, 3 [facility] which replace CVX yrs or older Center) 15, influenza, split virus. Source: New Immunization Record Medications Medication Brand Start Product Dose Route Administrative Pharm[facility] Indications Reaction Description Data Name Date Form Instructions Instructions Source(s) buspirone buspir ORAL active take 1 NE XTGEN hydrochlori one 2018 {tbl} tablet by (S aint de 7.5 MG 7.5 mg 12:00: oral route 2 Jonathon Oral Tablet tablet 00 AM times ever y Medical buspirone EST day Center) 7.5 mg tablet 200 ACTUAT Ventol 12/26/ active [id number] 3 NEXTGEN Albuterol in HFA 2018 200 ACTUAT (S aint 0.09 90 12:00: Albuterol Jonathon MG/ACTUAT mcg/ac 00 AM 0.09 Medical Metered tuatio EST MG/ACTUAT Cente r) Dose n Metered Dose Inhaler aeroso Inhaler [Ventolin] l [Ventolin] Ventolin inhale HFA 90 r mcg/actuati on aerosol inhaler Ibuprofen ibupro ORAL active take 1 NE XTGEN 400 MG Oral fen 2018 {tbl} tablet by (S aint Tablet 400 [...] 200 ACT UAT NEXTGEN Albuterol in HFA 2017 ed Albuterol (Sa int 0.09 90 12:00: 0.09 Jonathon MG/ACTUAT mcg/ac 00 AM MG/ACTUAT Me dical Metered tuatio EST Metered Dose Ce nter) Dose n Inhaler Inhaler aeroso [Ventolin] [Ventolin] l Ventolin inhale HFA 90 r mcg/actuati on aerosol inhaler Melatonin 5 melato 07/15/ active take 5m g NEXTGEN MG Oral malik 2016 tablet at (Saint Tablet mg 12:00: bedtime for Carloz silvio melatonin 5 tablet 00 AM insomnia M edical mg tablet EDT Center) buspirone buspir . ORAL complet take 1 N EXTGEN hydrochlori [...] day a day Cyclobenzap cyclob 1 complet Coery nt rine enzapr ed Jonathon hydrochlori ine [...] PRN pain naproxen complet Saint prn ed [facility] Sulfamethox sulfam 1 complet Corey nt azole [...] name Policy type Policy ID Covered Covered constitution party's Policy P olga / Coverage constitution party ID relationship to Bryan Inf ormation type bryan HIP HMO [id number] SP [id number] PMA Management [id number] SP [id number] Rajiv [facility] [id number] O JR CARE W [id number] 01 [id number] JR CARE W [id number] Problems, Conditions, and Diagnoses Code Display Name Description Problem Type Effective Data Dates Source(s) [id number] Anxiety [facility] F17.210 Nicotine NICOTINE Diagnosis 12/27/2019 [facility] dependence, DEPENDENCE, 12:57:00 AM Medical cigarettes, CIGARETTES, EDT Center uncomplicated UNCOMPLICATED J45.909 Unspecified UNSPECIFIED Diagnosis 12/27/2019 [facility] asthma, ASTHMA, 12:57:00 AM Medical uncomplicated UNCOMPLICATED EDT Center J06.9 Acute upper ACUTE UPPER Diagnosis 12/27/2019 [facility] respiratory RESPIRATORY 12:57:00 AM Medical infection, INFECTION, EDT Center unspecified UNSPECIFIED R05 Cough COUGH Diagnosis 12/27/2019 [facility] 12:57:00 AM Medical EDT Center L02.215 Cutaneous abscess CUTANEOUS ABSCESS Diagnosis 05/03/2019 [facility] of perineum OF PERINEUM 07:50:00 AM Medical EDT Center L02.91 Cutaneous abscess, CUTANEOUS ABSCESS, Diagnosis 9 [facility] unspecified UNSPECIFIED 07:50:00 AM Medical EDT Center M79.672 Pain in left foot PAIN IN LEFT FOOT Diagnosis 03/25/2019 [facility] 07:27:00 PM Medical EDT Center L60.0 Ingrowing nail INGROWING NAIL Diagnosis 03/25/2019 [facility] 07:27:00 PM Medical EDT Center M79.673 Pain in PAIN IN Diagnosis 03/25/2019 [facility] unspecified foot UNSPECIFIED FOOT 07:27:00 PM edical EDT Center F41.9 Anxiety disorder, ANXIETY DISORDER, Diagnosis 12/26/2018 [facility] unspecified UNSPECIFIED 12:42:00 [...] OTH INDUSTRIAL AND Diagnosis 12/22/2018 S june Jonathon industrial and CONSTRUCTION AREA 02:24:00 PM [facility] construction area PLACE EST Center as the place of occurrence of the external cause Y93.89 Activity, other ACTIVITY, OTHER Diagnosis 12/22/2018 David Holt specified SPECIFIED 02:24:00 PM Medical EST Center X50.0XXA Overexertion from OVEREXERTION FROM Diagnosis 12/22/2018 Jonathon strenuous movement STRENUOUS MOVEMENT 02:24:00 PM Medical [...] Description Date Indications Data Source(s) OFFICE/OUTPATIENT 12/26/2018 NEXTGEN (Jorgito Holt VISIT, EST 12:00:00 AM EST - Medical Ce nter) 12/26/2018 12:00:00 AM EST OFFICE/OUTPATIENT 07/31/2017 GLADIS (Jorgito Holt VISIT, EST 12:00:00 AM EDT - Medical Ce nter) 07/31/2017 12:00:00 AM EDT Results ID Date Data Source [id number] 05/23/2020 02:09:00 PM EDT [facility] Name Value Range Interpretation Code Description Data Lauren rce(s) Supporting Document(s ) SARS-COV-2 [facility] RESP Diagnostics QL ARAVIND+PROBE This lab was ordered by [facility] and reported by [facility]. ID Date Data Source [id number] 05/31/2018 11:25:00 PM EDT [facility] 400 Name Value Range Interpretation Description Data Sup porting Code Source(s) Document(s ) UNK <item><content Saint styleCode="Raghu Holt ">Culture Medical Report Center </content>
<table><tbody>< tr><td>Specimen Number:</td><td >[id number]</td> </tr><tr><td>Sa mple Collection Date/Time: </td><td> 018 11:25 PM</td></tr><tr ><td>Specimen Source:</td><td >THROAT</td></t r><tr><td>Throa t-Nose Culture:</td><t d>Collection Plate Date: 05/31/2018 23:36 </td></tr><tr>< td>Culture Status:</td><td >Final </td></tr><tr>< td>Culture Report:</td><td >NEGATIVE FOR BETA HEMOLYTIC STREPTOCOCCI </td></tr></tbo dy></table></it em> Streptococcus <item><content Saint pyogenes Ag styleCode="Raghu Holt [Presence] in ">Rapid Strep A Medical Unspecified </content>
Center specimen by <table><tbody>< Immunoassay tr><td>Specimen Number:</td><td >[id number]</td> </tr><tr><td>Sa mple Collection Date/Time: </td><td> 11:25 PM</td></tr><tr ><td>Specimen Source:</td><td >THROAT</td></t r><tr><td>Rapid Strep A:</td><td>NEGA TIVE </td></tr></tbo dy></table></it em> UNK <item><content Saint styleCode="Raghu Jonathon ">Culture Medical Status Center </content>
<table><tbody>< tr><td>Specimen Number:</td><td >[id number]</td> </tr><tr><td> mple Collection Date/Time: </td><td> 11:25 PM</td></tr><tr ><td>Specimen Source:</td><td >THROAT</td></t r><tr><td>Cultu re Report:</td><td >NEGATIVE FOR BETA HEMOLYTIC STREPTOCOCCI </td></tr><tr>< td>Throat-Nose Culture:</td><t d>Collection Plate Date: 05/31/2018 23:36 </td></tr><tr>< td>Culture Status:</td><td >Final </td></tr></tbo dy></table></it em> Procedure Social History Code Duration Value Status Description Data Source(s ) Smoking 12/27/2019 Daily Smoker completed Daily Smoker [facility] 01:52:00 AM EDT Medical C enter Smoking 12/27/2019 Daily Smoker completed Daily Smoker [facility] 01:35:00 AM EDT Medical C enter Smoking 12/27/2019 Daily Smoker completed Daily Smoker [facility] 01:03:00 AM EDT Medical C enter Smoking 05/03/2019 Daily Smoker completed Daily Smoker [facility] 08:30:00 AM EDT Medical C enter Smoking 05/03/2019 Daily Smoker completed Daily Smoker [facility] 08:10:00 AM EDT Medical C enter Smoking 05/03/2019 Daily Smoker completed Daily Smoker [facility] 07:53:00 AM EDT Medical C enter Smoking 03/25/2019 Daily Smoker completed Daily Smoker [facility] 07:57:00 PM EDT Medical C enter Smoking 03/25/2019 Daily Smoker completed Daily Smoker [facility] 07:45:00 PM EDT Medical C enter Caffeine Use 12/26/2018 completed NEXTGEN (Corey nt Details 12:00:00 AM EST [facility]) Smoking 12/26/2018 Unknown if completed Unknown if ever NEXTGEN ( [facility] 12:00:00 AM EST ever smoked smoked [facility]) Smoking 12/22/2018 Daily Smoker completed Daily Smoker [facility] 01:37:00 PM EST Medical C enter Smoking 12/22/2018 Daily Smoker completed Daily Smoker [facility] 01:35:00 PM EST Medical C enter Smoking 12/22/2018 Daily Smoker completed Daily Smoker [facility] 01:26:00 PM EST Medical C enter Smoking Unknown if completed Unknown if ever [facility] ever smoked smoked Medical Cente r Alcohol Use completed NEXTGEN (David t [facility]) Vital Signs ID Date Data Source UNK Name Value Range Interpretation Code Description Data Source(s) Body weight 107.110418 107.115683 kg [facility] Measured kg [facility] Body temperature 37.934127 37.874246 [facility] Respiratory rate 20 /min 20 /min [facility] Oxygen saturation 96 % 96 % [facility] Arterial blood [facility] by Pulse oximetry Heart rate 99 /min 99 /min [facility] Body height 175.294782 175.028095 cm [facility] cm [facility] Center Diastolic blood 79 mm[Hg] 79 mm[Hg] [facility] pressure Medical Center Systolic blood 155 mm[Hg] 155 mm[Hg] [facility] pressure Medical Center Body mass index 34.9 kg/m2 34.9 kg/m2 [facility] (BMI) [Ratio] Medical Stephanie ter Body weight 107.840245 107.472446 kg [facility] Measured kg Medical Center Body temperature 36.660893 36.782637 Mar[facility] Center Respiratory rate 18 /min 18 /min [facility] Oxygen saturation 98 % 98 % [facility] by Pulse oximetry Heart rate 82 /min 82 /min [facility] Diastolic blood 96 mm[Hg] 96 mm[Hg] [facility] pressure [facility] Systolic blood 159 mm[Hg] 159 mm[Hg] [facility] Center Body weight 102.203134 102.328234 kg [facility] Measured kg Medical Center Body temperature 36.542983 36.094738 Mar[facility] Center Respiratory rate 19 /min 19 /min [facility] Heart rate 93 /min 93 /min [facility] Body height 177.778971 177.315377 cm [facility] Diastolic blood 88 mm[Hg] 88 mm[Hg] [facility] Center Systolic blood 158 mm[Hg] 158 mm[Hg] [facility] Body mass index 32.2 kg/m2 32.2 kg/m2 [facility] (BMI) [Ratio] Medical [facility] Oxygen saturation 98 % 98 % [facility] ([facility] in [facility] by Pulse oximetry Center) Body mass index 33.92 kg/m2 Overweight 33.92 kg/m2 [facility] (BMI) [Ratio] [facility]) Respiratory rate 20 /min 20 /min [facility] ([facility]) Body temperature 36.61 Maricel 36.61 Maricel [facility] ([facility]) Heart rate 74 /min 74 /min [facility] ([facility]) Diastolic blood 80 mm[Hg] 80 mm[Hg] [facility] ( [facility]) Systolic blood 126 mm[Hg] 126 mm[Hg] [facility] (S aint [facility]) Body weight 107.229 kg 107.229 kg [facility] ([facility]) Body height 177.80 cm 177.80 cm [facility] ([facility]) Body temperature 36.863297 36.600902 [facility] Respiratory rate 18 /min 18 /min [facility] Oxygen saturation 98 % 98 % [facility] by Pulse oximetry Heart rate 86 /min 86 /min [facility] Diastolic blood 76 mm[Hg] 76 mm[Hg] [facility] Center Systolic blood 122 mm[Hg] 122 mm[Hg] [facility] Center Body weight 84.545551 kg 84.244669 kg [facility] Center Body temperature 36.425309 36.681576 Mar[facility] Center Respiratory rate 17 /min 17 /min [facility] Oxygen saturation 99 % 99 % [facility] in Arterial blood [facility] by Pulse oximetry Heart rate 85 /min 85 /min [facility] Body height 182.991755 182.167248 cm [facility] Diastolic blood 82 mm[Hg] 82 mm[Hg] [facility] Center Systolic blood 142 mm[Hg] 142 mm[Hg] [facility] Body mass index 25.1 kg/m2 25.1 kg/m2 [facility] (BMI) [Ratio] Medical [facility] Body weight 102.624930 102.094768 kg [facility] Center Body temperature 36.675193 36.845589 [facility] Center Respiratory rate 20 /min 20 /min [facility] Oxygen saturation 98 % 98 % [facility] by Pulse oximetry Heart rate 82 /min 82 /min [facility] Body height 177.616150 177.252053 cm [facility] Diastolic blood 77 mm[Hg] 77 mm[Hg] [facility] Center Systolic blood 146 mm[Hg] 146 mm[Hg] [facility] Body mass index 32.1 kg/m2 32.1 kg/m2 [facility] (BMI) [Ratio] Medical [facility] Oxygen saturation 98 % 98 % [facility] ([facility] Arterial blood [facility] by Pulse oximetry Center) Body mass index 32.14 kg/m2 Overweight 32.14 kg/m2 [facility] (BMI) [Ratio] [facility]) Respiratory rate 18 /min 18 /min [facility] ([facility]) Body temperature 37.22 Maricel 37.22 Maricel [facility] ([facility]) Heart rate 74 /min 74 /min [facility] ([facility]) Diastolic blood 78 mm[Hg] 78 mm[Hg] NEXTGEN ( [facility]) Systolic blood 125 mm[Hg] 125 mm[Hg] NEXTGEN (S aint pressure [facility]) Body weight 101.605 kg 101.605 kg NEXTGEN ([facility] t [facility]) Body height 177.80 cm 177.80 cm NEXTGEN ([facility]) Patient Treatment Plan of Care Planned Activity Planned Date Details Description Data Source (s) 200 ACTUAT Albuterol 0.09 12/26/2018 NE XTGEN (Saint MG/ACTUAT Metered Dose 12:00:00 AM [facility] Medical Inhaler [[facility]] [place]) Ibuprofen 400 MG Oral 12/26/2018 NEXTGE N (Saint Tablet 12:00:00 AM [facility]) buspirone hydrochloride 7.5 12/26/2018 NEXTGEN (Saint MG Oral Tablet 12:00:00 AM [facility]) buspirone hydrochloride 7.5 03/30/2018 NEXTGEN (Saint MG Oral Tablet 12:00:[address] [facility]) 200 ACTUAT Albuterol 0.09 09/18/2017 NE XTGEN (Saint MG/ACTUAT Metered Dose 12:00:00 AM [facility] Medical Inhaler [[facility]] [place]) buspirone hydrochloride 7.5 09/18/2017 NEXTGEN (Saint MG Oral Tablet 12:00:00 AM [facility]) buspirone hydrochloride 7.5 09/18/2017 NEXTGEN (Saint MG Oral Tablet 12:00:00 AM [facility]) Melatonin 5 MG Oral Tablet 07/15/2017 N EXTGEN (Saint 12:00:00 AM [facility]) buspirone hydrochloride 7.5 07/15/2017 NEXTGEN (Saint MG Oral Tablet 12:00:[address] [facility]) 12 HR cetirizine [facility] hs hydrochloride 5 MG / [facility] Pseudoephedrine Hydrochloride 120 MG Extended Release Oral Tablet Acetaminophen 325 MG Oral [facility] Tablet [facility] Sulfamethoxazole 800 MG / [facility] Trimethoprim 160 MG Oral [facility] Tablet Ibuprofen 600 MG Oral [facility] naproxen prn [facility] 200 ACTUAT Albuterol 0.09 Sa int Jonathon MG/ACTUAT Metered Dose Medic [facility] Inhaler [Proventil] Cyclobenzaprine [place] s hydrochloride 10 MG Oral Med [facility] Tablet Ibuprofen 200 MG Oral [facility]
[2020-07-13] MEDS ORDERED: LIDOCAINE 5% TOPICAL PATCH TP ONE (12:17)
[2020-07-13] MEDS ORDERED: KETOROLAC TROMETHAMINE 60 MG/2 ML VIAL IM ONE (12:17)
[2020-07-13] MEDS ORDERED: KETOROLAC TROMETHAMINE 30 MG/1 ML VIAL ONE (12:22)
[2020-07-13] MEDS ORDERED: LIDOCAINE 5% TOPICAL PATCH ONE (12:22)
== END 2020-07-13 13:16 | disposition home or self-care (01) ==
LOC: JERFT 11:47
PROC: 3E0233Z Introduction of Anti-inflammatory into Muscle, Percutaneous Approach (ICD-10-PCS; principal; 2020-07-13)
DX: M54.42 Lumbago with sciatica, left side (principal)
CPT/HCPCS: 72100-TC-FY; 99284-25

== ENCOUNTER 2020-07-24 16:07 | Emergency (ER) | payer OTHER ==
--- NOTE | 2020-07-24 16:24 | PDOC ---
Rapid Medical Evaluation Time Seen by Provider: 07/24/20 16:23 Medical Evaluation: Allergies Allergy/AdvReac Type Severity Reaction Status Date / Time No Known Allergies Allergy Verified 07/13/20 11:48 07/24/20 16:23 I have performed a brief in-person examination on this patient. CC: painless right testicle lump PE: deferred Orders: urine, sono Patient will proceed to ED for further evaluation. Discharge Disposition - Diagnosis Testicle lump - Referrals - Patient Instructions - Post Discharge Activity
[2020-07-24 16:29] VITALS: BP 153/96; PULSE 84; TEMP 98.8; BMI 39.1
--- NOTE | 2020-07-24 17:20 | PDOC ---
History of Present Illness - General Chief Complaint: Abscess Boil Stated Complaint: PAIN Time Seen by Provider: 07/24/20 16:23 - History of Present Illness Initial Comments: 07/24/20 17:18 35-year-old male without comorbidities presents for nonpainful area on his scrotum x1 day no systemic symptoms or dysuria no concern for STDs Past History - Medical History Allergies/Adverse Reactions: Allergies Allergy/AdvReac Type Severity Reaction Status Date / Time No Known Allergies Allergy Verified 07/24/20 16:24 Home Medications: Ambulatory Orders Ofloxacin 0.3% Ophth Soln [Ocuflox -] 2 drop OS Q6H 5 Days #1 bottle 06/12/20 Methocarbamol [Robaxin -] 500 mg PO BID #14 tablet 07/04/20 Methylprednisolone [Medrol Dose Nino] 4 mg PO ASDIR #21 tablet 07/04/20 Ketorolac Tromethamine [Toradol] 10 mg PO TID #21 tablet 07/13/20 Methocarbamol [Robaxin -] 500 mg PO BID #14 tablet 07/13/20 Doxycycline Hyclate 100 mg PO BID #14 tablet 07/24/20 Asthma: Yes Cardiac Disorders: Yes COPD: No Diabetes: No Dialysis: No - Immunization History Immunization Up to Date: Yes - Psycho-Social/Smoking History Smoking History: Current every day smoker Have you smoked in the past 12 months: Yes Number of Cigarettes Smoked Daily: 6 Information on smoking cessation initiated: Yes - Substance Abuse Hx (Audit-C & DAST Scrn) How often the patient has a drink containing alcohol: Monthly or less Number of drinks the patient has on a typical day: 1 or 2 How often the patient has six or more drinks on one occasion: Never Score: In Men: 4 or > Positive; In Women: 3 or > Positive: 1 Screen Result (Pos requires Nsg. Audit-10AR): Negative In the last yr the pt used illegal drug/Rx for NonMed reason: No Score: Yes response is considered Positive: 0 Screen Result (Positive result requires Nsg. DAST-10): Negative Review of Systems - Review of Systems : Yes: See HPI *Physical Exam - Vital Signs Last Vital Signs Temp Pulse Resp BP Pulse Ox 98.8 F 84 18 153/96 100 07/24/20 16:24 07/24/20 16:24 07/24/20 16:24 10/05/20 16:24 07/24/20 16:24 - Physical Exam 07/24/20 17:18 There is a small pea-sized freely mobile firm area on the scrotum on the skin about the right testicle. Nontender no fluctuance minimal erythema around the area no induration of the skin Medical Decision Making - Medical Decision Making 07/24/20 17:19 This area may represent an early abscess. Doxycycline follow-up with urology I have reviewed the pathophysiology with the patient. They are in agreement with the treatment plan all questions were answered to their satisfaction. Understanding for follow-up without fail was also conveyed to the patient. Again they are in agreement. Discharge - Discharge Information Problems reviewed: Yes Clinical Impression/Diagnosis: Testicle lump Condition: Stable Disposition: HOME - Admission No - Additional Discharge Information Prescriptions: Doxycycline Hyclate 100 mg PO BID #14 tablet - Follow up/Referral Referrals: Kan Pedraza MD [Primary Care Provider] - Nico Ernandez MD [Staff Physician] - - Patient Discharge Instructions Additional Instructions: Please take the antibiotics as directed and return to the emergency room for further issues. Without fail follow-up with urology in 1 to 2 days for further evaluation and treatment options. Tylenol and Motrin as directed for pain. - Post Discharge Activity
[2020-07-24 17:32] LABS: URINE APPEARANCE CLEAR; URINE BILIRUBIN NEGATIVE (NEGATIVE); URINE COLOR YELLOW; URINE GLUCOSE (UA) NEGATIVE (NEGATIVE); URINE KETONE NEGATIVE (NEGATIVE); URINE LEUK ESTERASE NEGATIVE (NEGATIVE); URINE NITRITE NEGATIVE (NEGATIVE); URINE PROTEIN NEGATIVE (NEGATIVE); URINE UROBILINOGEN 0.2 mg/dL (0.2-1.0)
== END 2020-07-24 17:39 | disposition home or self-care (01) ==
LOC: JERFT 16:07
DX: N50.89 Other specified disorders of the male genital organs (principal)
CPT/HCPCS: 36415; 81003; 87491; 87591; 99284-25

== ENCOUNTER 2021-02-27 14:35 | Emergency (ER) | payer OTHER ==
[2021-02-27 14:42] VITALS: BP 144/91; PULSE 96; BMI 39.1
[2021-02-27 14:43] VITALS: TEMP 98.1
[2021-02-27] MEDS ORDERED: SODIUM CHLORIDE 1,000 ML IV STA (15:09)
[2021-02-27] MEDS ORDERED: FAMOTIDINE 20 MG/50 ML IVPB 20 MG/50 ML MG IVPB ONE ×2 (15:09→15:50)
[2021-02-27 16:16] LABS: BASO % 0.7 % (0-2.0); EOS % 1.1 % (0-4.5); HEMATOCRIT 45.2 % (35.4-49); HEMOGLOBIN 15.3 GM/dL (11.7-16.9); LYMPH % 31.6 % (8-40); MCH 30.7 pg (25.7-33.7); MCHC 33.9 g/dl (32.0-35.9); MEAN CELL VOLUME 90.7 fl (80-96); MEAN PLT VOLUME 8.4 fl (7.5-11.1); MONO % 8.5 % (3.8-10.2); NEUT % 58.1 % (42.8-82.8); PLATELET COUNT 244 K/MM3 (134-434); RBC 4.98 M/mm3 (4.00-5.60); RDW 13.2 % (11.9-15.9)
[2021-02-27 16:31] LABS: BLOOD UREA NITROGEN 14.5 mg/dL (7-18); CALCIUM 8.6 mg/dL (8.5-10.1)
[2021-02-27 16:34] LABS: CREATININE 0.8 mg/dL (0.55-1.3)
[2021-02-27 16:36] LABS: BILIRUBIN,TOTAL 0.6 mg/dL (0.2-1); TOT PROT 7.6 g/dl (6.4-8.2)
[2021-02-27 18:21] LABS: URINE APPEARANCE CLEAR; URINE BILIRUBIN NEGATIVE (NEGATIVE); URINE COLOR YELLOW; URINE GLUCOSE (UA) NEGATIVE (NEGATIVE); URINE KETONE TRACE (NEGATIVE); URINE LEUK ESTERASE NEGATIVE (NEGATIVE); URINE NITRITE NEGATIVE (NEGATIVE); URINE PROTEIN NEGATIVE (NEGATIVE)
== END 2021-02-27 18:57 | disposition home or self-care (01) ==
LOC: JER 14:35
PROC: 3E033GC Introduction of Other Therapeutic Substance into Peripheral Vein, Percutaneous Approach (ICD-10-PCS; principal; 2021-02-27)
PROC: 3E0337Z Introduction of Electrolytic and Water Balance Substance into Peripheral Vein, Percutaneous Approach (ICD-10-PCS; 2021-02-27)
DX: K56.7 Ileus, unspecified (principal); K57.90 Diverticulosis of intestine, part unspecified, without perforation or abscess without bleeding
CPT/HCPCS: 36415; 74177-TC; 80053; 81003; 83690; 85025; 87086; 99285-25; Q9967

== ENCOUNTER 2021-03-16 13:26 | Emergency (ER) | payer OTHER ==
[2021-03-16 14:23] VITALS: BP 140/100; PULSE 83; TEMP 98.9; BMI 39.1
[2021-03-16] MEDS ORDERED: ONDANSETRON *ODT* 4 MG TABLET SL ONE (15:25)
[2021-03-16] MEDS ORDERED: ACETAMINOPHEN 325 MG TABLET (FP) PO ONE (15:25)
[2021-03-16] MEDS ORDERED: ACETAMINOPHEN 325 MG TABLET (FP) ONE (15:26)
[2021-03-16] MEDS ORDERED: ONDANSETRON *ODT* 4 MG TABLET ONE (15:27)
== END 2021-03-16 17:23 | disposition home or self-care (01) ==
LOC: SUPCPDRO 13:26 → JERFT 13:26
DX: T50.Z95A Adverse effect of other vaccines and biological substances, initial encounter (principal)
CPT/HCPCS: 93971; 99284-25; Q0162

== ENCOUNTER 2021-04-17 17:20 | Emergency (ER) | payer OTHER ==
[2021-04-17 17:27] VITALS: TEMP 98.4; BMI 38.4
[2021-04-17] MEDS ORDERED: SODIUM CHLORIDE 1,000 ML IV STA (18:08)
[2021-04-17] MEDS ORDERED: ACETAMINOPHEN 1000 MG/100 ML VIAL (NON FORMULARY) IVPB ONE (18:08)
[2021-04-17] MEDS ORDERED: ACETAMINOPHEN INJECTION 100 ML IVPB ONE (18:20)
[2021-04-17 18:55] LABS: BASO % 0.6 % (0-2.0); EOS % 0.7 % (0-4.5); HEMATOCRIT 45.1 % (35.4-49); HEMOGLOBIN 15.2 GM/dL (11.7-16.9); LYMPH % 17.5 % (8-40); MCH 29.8 pg (25.7-33.7); MCHC 33.7 g/dl (32.0-35.9); MEAN CELL VOLUME 88.5 fl (80-96); MEAN PLT VOLUME 7.5 fl (7.5-11.1); MONO % 6.2 % (3.8-10.2); PLATELET COUNT 263 10^3/uL (134-434); RBC 5.09 M/mm3 (4.00-5.60); RDW 13.4 % (11.9-15.9); WHITE BLOOD COUNT 8.3 K/mm3 (4.0-10.0)
[2021-04-17 19:04] LABS: INR 1.08 (0.83-1.09); PROTHROMBIN TIME (PATIENT) 13.2 SEC (9.7-13.0)
[2021-04-17 19:15] LABS: ALBUMIN 4.1 g/dl (3.4-5.0); BLOOD UREA NITROGEN 15.7 mg/dL (7-18); CALCIUM 8.9 mg/dL (8.5-10.1)
[2021-04-17 19:20] LABS: BILIRUBIN,TOTAL 0.8 mg/dL (0.2-1); TOT PROT 7.4 g/dl (6.4-8.2)
[2021-04-17 19:54] LABS: PH,URINE 5.5 (5.0-8.0); URINE APPEARANCE CLEAR; URINE BILIRUBIN NEGATIVE (NEGATIVE); URINE COLOR DK YELLOW; URINE GLUCOSE (UA) NEGATIVE (NEGATIVE); URINE KETONE TRACE (NEGATIVE); URINE LEUK ESTERASE NEGATIVE (NEGATIVE); URINE NITRITE NEGATIVE (NEGATIVE); URINE PROTEIN NEGATIVE (NEGATIVE)
[2021-04-17 19:55] LABS: CREATININE 0.9 mg/dL (0.55-1.3)
[2021-04-17 22:05] VITALS: BP 120/72; PULSE 98
== END 2021-04-17 22:05 | disposition home or self-care (01) ==
LOC: JER 17:20
PROC: 3E0333Z Introduction of Anti-inflammatory into Peripheral Vein, Percutaneous Approach (ICD-10-PCS; principal; 2021-04-17)
PROC: 3E0337Z Introduction of Electrolytic and Water Balance Substance into Peripheral Vein, Percutaneous Approach (ICD-10-PCS; 2021-04-17)
DX: N20.0 Calculus of kidney (principal)
CPT/HCPCS: 36415; 74176-TC; 80053; 81003; 85025; 85610; 87086; 99284-25; J0131

== ENCOUNTER 2021-05-07 07:39 | Emergency (ER) | payer OTHER ==
[2021-05-07 08:07] VITALS: TEMP 97.6; BMI 40.4
[2021-05-07] MEDS ORDERED: KETOROLAC TROMETHAMINE 30 MG/1 ML VIAL IM ONE (08:46)
[2021-05-07] MEDS ORDERED: KETOROLAC TROMETHAMINE 30 MG/1 ML VIAL IVPUSH ONE (08:55)
[2021-05-07] MEDS ORDERED: SODIUM CHLORIDE 0.9% 500 ML INFUS.BAG IV ONE (08:55)
[2021-05-07] MEDS ORDERED: KETOROLAC TROMETHAMINE 30 MG/1 ML VIAL ONE (08:55)
[2021-05-07 09:36] LABS: BASO % 0.3 % (0-2.0); EOS % 1.7 % (0-4.5); HEMATOCRIT 45.6 % (35.4-49); LYMPH % 35.4 % (8-40); MCH 29.8 pg (25.7-33.7); MEAN CELL VOLUME 90.2 fl (80-96); MEAN PLT VOLUME 8.1 fl (7.5-11.1); NEUT % 54.6 % (42.8-82.8); PLATELET COUNT 215 10^3/uL (134-434); RBC 5.05 M/mm3 (4.00-5.60); RDW 13.9 % (11.9-15.9); WHITE BLOOD COUNT 5.3 K/mm3 (4.0-10.0)
[2021-05-07 09:54] LABS: URINE APPEARANCE CLEAR; URINE BILIRUBIN NEGATIVE (NEGATIVE); URINE COLOR YELLOW; URINE GLUCOSE (UA) NEGATIVE (NEGATIVE); URINE KETONE NEGATIVE (NEGATIVE); URINE LEUK ESTERASE NEGATIVE (NEGATIVE); URINE NITRITE NEGATIVE (NEGATIVE); URINE PROTEIN NEGATIVE (NEGATIVE)
[2021-05-07 10:00] LABS: CALCIUM 8.4 mg/dL (8.5-10.1)
[2021-05-07 10:01] LABS: ALBUMIN 3.7 g/dl (3.4-5.0)
[2021-05-07 10:04] LABS: CREATININE 0.8 mg/dL (0.55-1.3)
[2021-05-07 10:05] LABS: BILIRUBIN,TOTAL 0.4 mg/dL (0.2-1); TOT PROT 7.2 g/dl (6.4-8.2)
[2021-05-07] MEDS ORDERED: LIDOCAINE 5% TOPICAL PATCH TP ONE (10:22)
[2021-05-07] MEDS ORDERED: LIDOCAINE 5% TOPICAL PATCH ONE (11:18)
[2021-05-07 12:33] VITALS: BP 120/67; PULSE 60
[2021-05-07] MEDS ORDERED: LIDOCAINE PATCH REMOVAL MC ONE (22:00)
== END 2021-05-07 14:30 | disposition home or self-care (01) ==
LOC: JER 07:39
PROC: 3E0333Z Introduction of Anti-inflammatory into Peripheral Vein, Percutaneous Approach (ICD-10-PCS; principal; 2021-05-07)
DX: N20.0 Calculus of kidney (principal); R10.9 Unspecified abdominal pain
CPT/HCPCS: 36415; 74177-TC; 76775-TC; 80053; 81003; 85025; 87086; 87491; 87591; 87661; 99285-25; Q9967

== ENCOUNTER 2021-05-16 18:55 | Observation (INO) | payer OTHER ==
[2021-05-16 19:06] VITALS: BMI 39.1
[2021-05-16] MEDS ORDERED: KETOROLAC TROMETHAMINE 15 MG/ML VIAL IVPUSH ONE (20:15)
[2021-05-16] MEDS ORDERED: morphine CARPU-JECT 2 MG/1 ML DISP.SYRIN IVPUSH ONE (20:15)
[2021-05-16] MEDS ORDERED: ONDANSETRON 4 MG/2 ML VIAL IVPUSH ONE (20:16)
[2021-05-16] MEDS ORDERED: SODIUM CHLORIDE 1,000 ML IV STA (20:18)
[2021-05-16] MEDS ORDERED: KETOROLAC TROMETHAMINE 15 MG/ML VIAL ONE (20:22)
[2021-05-16] MEDS ORDERED: ONDANSETRON 4 MG/2 ML VIAL ONE (20:22)
[2021-05-16] MEDS ORDERED: MORPHINE SULFATE 2 MG/ML VIAL ONE ×2 (20:22→20:28)
[2021-05-16] MEDS ORDERED: morphine CARPU-JECT 4 MG/1 ML DISP.SYRIN IVPUSH ONE (20:24)
[2021-05-16] MEDS ORDERED: KETOROLAC TROMETHAMINE 30 MG/1 ML VIAL IVPUSH ONE (20:26)
[2021-05-16] MEDS ORDERED: morphine SULFATE 4 MG/ML VIAL ONE (20:28)
[2021-05-16 21:12] LABS: BASO % 0.3 % (0-2.0); EOS % 0.7 % (0-4.5); HEMATOCRIT 43.6 % (35.4-49); LYMPH % 23.3 % (8-40); MCH 30.4 pg (25.7-33.7); MCHC 34.3 g/dl (32.0-35.9); MEAN CELL VOLUME 88.7 fl (80-96); MEAN PLT VOLUME 7.9 fl (7.5-11.1); MONO % 5.2 % (3.8-10.2); NEUT % 70.5 % (42.8-82.8); PLATELET COUNT 231 10^3/uL (134-434); RBC 4.92 M/mm3 (4.00-5.60); RDW 13.7 % (11.9-15.9); WHITE BLOOD COUNT 10.7 K/mm3 (4.0-10.0)
[2021-05-16 21:23] LABS: EPI CELLS 31 /uL (0-25.1); HYALINE CASTS 2 /uL (0-3.1); URINE APPEARANCE CLEAR; URINE BACTERIA 41 /uL (0-1359); URINE BILIRUBIN NEGATIVE (NEGATIVE); URINE COLOR YELLOW; URINE GLUCOSE (UA) NEGATIVE (NEGATIVE); URINE KETONE TRACE (NEGATIVE); URINE LEUK ESTERASE NEGATIVE (NEGATIVE); URINE NITRITE NEGATIVE (NEGATIVE); URINE PROTEIN 1+ (NEGATIVE); URINE RBC 158 /uL (0-23.9); URINE WBC 10 /uL (0-25.8)
[2021-05-16 21:30] LABS: ALBUMIN 4.3 g/dl (3.4-5.0)
[2021-05-16 21:31] LABS: CALCIUM 8.9 mg/dL (8.5-10.1)
[2021-05-16 21:32] LABS: ALBUMIN 4.2 g/dl (3.4-5.0)
[2021-05-16 21:33] LABS: BILIRUBIN,DIRECT 0.1 mg/dL (0.0-0.2)
[2021-05-16 21:35] LABS: BILIRUBIN,TOTAL 0.5 mg/dL (0.2-1); CREATININE 1.1 mg/dL (0.55-1.3); TOT PROT 7.6 g/dl (6.4-8.2)
[2021-05-16 21:36] LABS: BILIRUBIN,TOTAL 0.4 mg/dL (0.2-1); TOT PROT 7.8 g/dl (6.4-8.2)
[2021-05-16] MEDS ORDERED: ACETAMINOPHEN 500 MG TABLET (FP) PO ONE (22:33)
[2021-05-16] MEDS ORDERED: ACETAMINOPHEN 1000 MG/100 ML VIAL (NON FORMULARY) IVPB ONE (22:36)
[2021-05-16] MEDS ORDERED: ACETAMINOPHEN INJECTION 100 ML IVPB ONE (22:39)
[2021-05-17] MEDS ORDERED: SODIUM CHLORIDE 1,000 ML IV STA
[2021-05-17] MEDS ORDERED: KETOROLAC TROMETHAMINE 15 MG/ML VIAL IM ONE (00:01)
[2021-05-17] MEDS ORDERED: TAMSULOSIN HCL 0.4 MG CAP PO ONE (00:01)
[2021-05-17] MEDS ORDERED: TAMSULOSIN HCL 0.4 MG CAP ONE ×2 (00:11→07:44)
[2021-05-17] MEDS ORDERED: KETOROLAC TROMETHAMINE 15 MG/ML VIAL ONE (00:11)
[2021-05-17] MEDS ORDERED: KETOROLAC TROMETHAMINE 15 MG/ML VIAL IVPUSH ONE (00:13)
[2021-05-17] MEDS ORDERED: morphine CARPU-JECT 4 MG/1 ML DISP.SYRIN IVPUSH ONE (00:55)
[2021-05-17] MEDS ORDERED: ONDANSETRON 4 MG/2 ML VIAL IVPUSH ONE (00:57)
[2021-05-17] MEDS ORDERED: MORPHINE SULFATE 2 MG/ML VIAL ONE ×3 (01:03→13:54)
[2021-05-17] MEDS ORDERED: ONDANSETRON 4 MG/2 ML VIAL ONE (01:03)
[2021-05-17] MEDS ORDERED: morphine SULFATE 4 MG/ML VIAL ONE (01:03)
[2021-05-17] MEDS ORDERED: KETOROLAC TROMETHAMINE 15 MG/ML VIAL IVPUSH PRN (03:16)
[2021-05-17 05:56] LABS: BASO % 0.2 % (0-2.0); EOS % 0.1 % (0-4.5); HEMATOCRIT 43.1 % (35.4-49); HEMOGLOBIN 14.8 GM/dL (11.7-16.9); LYMPH % 11.6 % (8-40); MCHC 34.3 g/dl (32.0-35.9); MEAN CELL VOLUME 90.3 fl (80-96); MONO % 7.8 % (3.8-10.2); NEUT % 80.3 % (42.8-82.8); PLATELET COUNT 217 10^3/uL (134-434); RBC 4.78 M/mm3 (4.00-5.60); RDW 13.9 % (11.9-15.9); WHITE BLOOD COUNT 9.9 K/mm3 (4.0-10.0)
[2021-05-17 06:20] LABS: ALBUMIN 3.7 g/dl (3.4-5.0); BLOOD UREA NITROGEN 15.6 mg/dL (7-18)
[2021-05-17 06:23] LABS: CREATININE 1.2 mg/dL (0.55-1.3)
[2021-05-17 06:25] LABS: BILIRUBIN,TOTAL 0.7 mg/dL (0.2-1); TOT PROT 6.8 g/dl (6.4-8.2)
[2021-05-17] MEDS ORDERED: ONDANSETRON *ODT* 4 MG TABLET ONE ×2 (07:44→14:07)
[2021-05-17] MEDS: SODIUM CHLORIDE 1,000 ML IV SCH (07:53)
[2021-05-17] MEDS: TAMSULOSIN HCL 0.4 MG CAP PO SCH (07:53)
[2021-05-17] MEDS: ONDANSETRON *ODT* 4 MG TABLET SL SCH ×3 (07:53→21:29)
[2021-05-17] MEDS: MORPHINE SULFATE 2 MG/ML VIAL IVPUSH PRN ×2 (07:57→13:58)
[2021-05-17 11:41] LABS: MAGNESIUM 2.1 mg/dL (1.8-2.4)
[2021-05-17 11:45] LABS: PHOSPHOROUS 3.6 mg/dL (2.5-4.9)
[2021-05-17] MEDS ORDERED: GLYCERIN 1 RECTAL SUPPOSITORY, PEDIATRIC RC ONE ×2 (13:54→14:16)
[2021-05-17] MEDS: GLYCERIN 1 RECTAL SUPPOSITORY, ADULT RC ONE (14:16)
[2021-05-17] MEDS ORDERED: NICOTINE POLACRILEX 2 MG GUM BUC PRN (17:32)
[2021-05-18] MEDS: SODIUM CHLORIDE 1,000 ML IV SCH ×2 (03:39→09:34)
[2021-05-18] MEDS: ONDANSETRON *ODT* 4 MG TABLET SL SCH (06:24)
[2021-05-18] MEDS: GLYCERIN 1 RECTAL SUPPOSITORY, ADULT RC ONE (07:55)
[2021-05-18] MEDS: TAMSULOSIN HCL 0.4 MG CAP PO SCH (09:34)
[2021-05-18 12:01] VITALS: BP 122/66; PULSE 84; TEMP 97.1
== END 2021-05-18 14:04 | disposition home or self-care (01) ==
LOC: JER 18:55 → INTOOBSV 05-17 01:21 → JERBED 05-17 01:21 → J6S 05-17 16:06
PROVIDERS: ADMIT Internal Medicine; ATTEND Internal Medicine
PROC: 3E033NZ Introduction of Analgesics, Hypnotics, Sedatives into Peripheral Vein, Percutaneous Approach (ICD-10-PCS; principal; 2021-05-17)
PROC: 3E0333Z Introduction of Anti-inflammatory into Peripheral Vein, Percutaneous Approach (ICD-10-PCS; 2021-05-17)
PROC: 3E033GC Introduction of Other Therapeutic Substance into Peripheral Vein, Percutaneous Approach (ICD-10-PCS; 2021-05-17)
PROC: 3E0337Z Introduction of Electrolytic and Water Balance Substance into Peripheral Vein, Percutaneous Approach (ICD-10-PCS; 2021-05-17)
DX: N13.2 Hydronephrosis with renal and ureteral calculous obstruction (principal); I10 Essential (primary) hypertension; E66.9 Obesity, unspecified; Z68.39 Body mass index [BMI] 39.0-39.9, adult; K21.9 Gastro-esophageal reflux disease without esophagitis; Z91.013 Allergy to seafood; J45.909 Unspecified asthma, uncomplicated; K64.4 Residual hemorrhoidal skin tags; F17.210 Nicotine dependence, cigarettes, uncomplicated
CPT/HCPCS: 36415; 74176-TC; 76870-TC; 80053; 80076; 81003; 83735; 84100; 85025; 87086; 93005; 93010; 96361; 96374; 96375; 96376; 99285-25; C9803; G0378; J0131; Q0162; U0003; U0005

== ENCOUNTER 2021-10-01 13:57 | Emergency (ER) | payer OTHER ==
[2021-10-01 14:13] VITALS: TEMP 97.9; BMI 32.5
[2021-10-01] MEDS ORDERED: ACETAMINOPHEN 1000 MG/100 ML VIAL IVPB ONE (15:58)
[2021-10-01] MEDS ORDERED: LACTATED RINGERS SOLUTION 1000 ML INFUS.BAG IV ONE (15:58)
[2021-10-01] MEDS ORDERED: KETOROLAC TROMETHAMINE 30 MG/1 ML VIAL IVPUSH ONE (16:21)
[2021-10-01] MEDS ORDERED: ACETAMINOPHEN INJECTION 100 ML IVPB ONE (16:48)
[2021-10-01] MEDS ORDERED: KETOROLAC TROMETHAMINE 30 MG/1 ML VIAL ONE (16:48)
[2021-10-01 17:55] LABS: BASO % 0.3 % (0-2.0); EOS % 1.5 % (0-4.5); HEMATOCRIT 41.5 % (35.4-49); HEMOGLOBIN 14.1 GM/dL (11.7-16.9); MCH 30.6 pg (25.7-33.7); MCHC 34.1 g/dl (32.0-35.9); MEAN CELL VOLUME 89.9 fl (80-96); MEAN PLT VOLUME 7.8 fl (7.5-11.1); MONO % 6.1 % (3.8-10.2); NEUT % 56.1 % (42.8-82.8); PLATELET COUNT 221 10^3/uL (134-434); RBC 4.61 M/mm3 (4.00-5.60); RDW 13.6 % (11.9-15.9); WHITE BLOOD COUNT 5.5 K/mm3 (4.0-10.0)
[2021-10-01 18:08] LABS: URINE APPEARANCE CLEAR; URINE BILIRUBIN NEGATIVE (NEGATIVE); URINE COLOR YELLOW; URINE GLUCOSE (UA) NEGATIVE (NEGATIVE); URINE KETONE NEGATIVE (NEGATIVE); URINE LEUK ESTERASE NEGATIVE (NEGATIVE); URINE NITRITE NEGATIVE (NEGATIVE); URINE PROTEIN NEGATIVE (NEGATIVE); URINE UROBILINOGEN 0.2 mg/dL (0.2-1.0)
[2021-10-01 18:18] LABS: BLOOD UREA NITROGEN 9.7 mg/dL (7-18); CALCIUM 8.5 mg/dL (8.5-10.1)
[2021-10-01 18:20] LABS: ALBUMIN 3.4 g/dl (3.4-5.0)
[2021-10-01 18:22] LABS: CREATININE 0.8 mg/dL (0.55-1.3)
[2021-10-01 18:23] LABS: BILIRUBIN,TOTAL 0.6 mg/dL (0.2-1); TOT PROT 6.9 g/dl (6.4-8.2)
[2021-10-01 19:03] VITALS: BP 128/70; PULSE 80
== END 2021-10-01 19:03 | disposition home or self-care (01) ==
LOC: JER 13:57
PROC: 3E033GC Introduction of Other Therapeutic Substance into Peripheral Vein, Percutaneous Approach (ICD-10-PCS; principal; 2021-10-01)
DX: R10.9 Unspecified abdominal pain (principal)
CPT/HCPCS: 36415; 74176-TC; 80053; 81003; 85025; 87086; 99285-25; J0131

== ENCOUNTER 2022-05-22 09:41 | Emergency (ER) | payer OTHER ==
[2022-05-22 09:47] VITALS: TEMP 98.4; BMI 36.9
[2022-05-22] MEDS ORDERED: SODIUM CHLORIDE 0.9% 500 ML INFUS.BAG IV ONE (10:12)
[2022-05-22] MEDS ORDERED: ONDANSETRON 4 MG/2 ML VIAL IVPUSH ONE (10:12)
[2022-05-22] MEDS ORDERED: ONDANSETRON 4 MG/2 ML VIAL ONE (10:18)
[2022-05-22 11:11] LABS: EPI CELLS 15 /uL (0-25.1); HYALINE CASTS 3 /uL (0-3.1); PH,URINE 5.5 (5.0-8.0); URINE APPEARANCE CLEAR; URINE BACTERIA 11 /uL (0-1359); URINE BILIRUBIN 1+ (NEGATIVE); URINE COLOR DK YELLOW; URINE GLUCOSE (UA) NEGATIVE (NEGATIVE); URINE KETONE TRACE (NEGATIVE); URINE LEUK ESTERASE NEGATIVE (NEGATIVE); URINE NITRITE NEGATIVE (NEGATIVE); URINE PROTEIN 1+ (NEGATIVE); URINE RBC 7 /uL (0-23.9); URINE UROBILINOGEN 0.2 mg/dL (0.2-1.0); URINE WBC 18 /uL (0-25.8)
[2022-05-22 11:26] LABS: BASO % 0.3 % (0-2.0); EOS % 1.2 % (0-4.5); HEMATOCRIT 44.4 % (35.4-49); HEMOGLOBIN 15.2 GM/dL (11.7-16.9); LYMPH % 33.1 % (8-40); MCH 30.3 pg (25.7-33.7); MCHC 34.2 g/dl (32.0-35.9); MEAN CELL VOLUME 88.7 fl (80-96); MONO % 7.6 % (3.8-10.2); NEUT % 57.8 % (42.8-82.8); PLATELET COUNT 225 10^3/uL (134-434); RBC 5.01 M/mm3 (4.00-5.60); RDW 13.1 % (11.9-15.9)
[2022-05-22 11:36] LABS: BLOOD UREA NITROGEN 15.7 mg/dL (7-18)
[2022-05-22 11:39] LABS: CREATININE 0.8 mg/dL (0.55-1.3)
[2022-05-22 11:41] LABS: TOT PROT 7.4 g/dl (6.4-8.2)
[2022-05-22] MEDS ORDERED: ACETAMINOPHEN 1000 MG/100 ML BAG IVPB ONE (11:41)
[2022-05-22] MEDS ORDERED: ACETAMINOPHEN INJECTION 100 ML IVPB ONE (11:42)
[2022-05-22 12:27] VITALS: BP 148/92; PULSE 67; RESP 16
== END 2022-05-22 12:27 | disposition home or self-care (01) ==
LOC: JER 09:41
PROC: 3E033GC Introduction of Other Therapeutic Substance into Peripheral Vein, Percutaneous Approach (ICD-10-PCS; principal; 2022-05-22)
DX: R10.9 Unspecified abdominal pain (principal)
CPT/HCPCS: 36415; 74176-TC; 80053; 81003; 85025; 87086; 99285-25

== ENCOUNTER 2024-03-23 20:49 | Emergency (ER) | payer OTHER ==
[2024-03-23 20:58] VITALS: BP 142/82; PULSE 90; RESP 18; TEMP 98.8; BMI 38.4
[2024-03-23] MEDS: LIDOCAINE HCL 2% JELLY 10 ML CARTRIDGE PR ONE ×2 (21:50)
[2024-03-23] MEDS ORDERED: LIDOCAINE HCL 2% JELLY 11 ML TP ONE (21:50)
== END 2024-03-23 21:57 | disposition home or self-care (01) ==
LOC: JER 20:49
DX: K64.4 Residual hemorrhoidal skin tags (principal); K62.5 Hemorrhage of anus and rectum; K59.00 Constipation, unspecified
CPT/HCPCS: 82272; 93005; 93010; 99284-25